=== PATIENT | female | born 1945 | race Caucasian/White ===

== ENCOUNTER 2022-01-22 19:16 | Emergency (ER) | payer MEDICARE, SELFPAY ==
[2022-01-22 19:34] VITALS: BP 148/75; PULSE 76; RESP 18; TEMP 36.3; O2SAT 97; BMI 29.6
--- NOTE | 2022-01-22 20:06 | ED_ITS ---
HPI - Ear Problem General Chief complaint: Ear/Nose/Throat Problem Stated complaint: RT EAR ACHE,PAIN Time Seen by Provider: 01/22/22 19:40 History of Present Illness HPI Narrative: 76-year-old female patient presents emergency department via POV with complaints of right ear pain that has now resolved at time of arrival. If she presses firmly at the base of her ear, along her neck, she can illicit pain. Patient reports that she noted ear pain earlier in the day without known trauma or injury. She denies URI symptoms. She denies fever, chills, or sweats. She has no significant history of recurrent or frequent ear infection. She has known history of wax impaction. She denies sore throat, nasal congestion, or decreased hearing. She has no other acute concerns or complaints. She has taken no medications prior to arrival. See nursing notes for complete details. Related Data Home Medications Medication Instructions Recorded Confirmed No Known Home Medications 01/22/22 01/22/22 Allergies Allergy/AdvReac Type Severity Reaction Status Date / Time No Known Drug Allergies Allergy Verified 01/22/22 19:37 Review of Systems Const: Denies: fever ENMT: Reports: ear pain; Denies: neck pain, difficulty swallowing or ear discharge Cardio: Denies: chest pain or shortness of breath with exertion Resp: Denies: shortness of breath or cough GI: Denies: abdominal pain, nausea, vomiting or difficulty swallowing Musculo: Denies: neck pain Neuro: Denies: headache PFSH PFSH Social History Smoking Status: Former smoker How often do you have a drink containing alcohol: never AUDIT-C Alcohol total score: 0 Non-prescribed substance use: denies use Exam Const: Vital Signs, click to edit/add: Vital Signs - 24 hr 01/22/22 19:34 Temperature 97.4 F L Pulse Rate [Left P ulse Oximeter] 76 Respiratory Rate 18 Blood Pressure [Ri ght Upper Arm] 148/75 H Pulse Oximetry 97 Documenting provider has reviewed patient's vital signs: yes Common normals: no apparent distress, oriented x3, healthy appearing, alert and well nourished General appearance: cooperative, comfortable, well kempt and well developed; not in distress Orientation/consciousness: Yes awake, Yes oriented to person, Yes oriented to place and Yes oriented to time HENMT: Common normals: normocephalic, head/scalp atraumatic, hearing grossly normal bilaterally, external ears normal, TM's normal bilaterally (limited window on right 2/2 wax occlusion), moist oral mucous membranes and oropharynx normal Head and scalp: normocephalic and atraumatic External ear: external ears normal Tympanic membrane: TM's normal bilaterally (limited window on right 2/2 wax occlusion) Eye: Common normals: PERRL and EOMs intact bilaterally Pupil: PERRL Neck & C-Spine: Common normals: full ROM, no lymphadenopathy and supple Chest: Common normals: inspection of chest normal and palpation of chest normal Resp: Common normals: normal respiratory effort, no retractions, no use of accessory muscles and clear to auscultation bilaterally Effort & inspection: able to speak in complete sentences Auscultation: clear to auscultation bilaterally Cardio: Common normals: regular rate, regular rhythm, S1 normal heart sound, S2 normal heart sound, no gallops, no clicks and no murmurs Rate: regular rate Rhythm: regular rhythm Heart sounds: S1 normal and S2 normal Extremity: Common normals: normal to inspection and full ROM Neuro: Common normals: oriented x3, moves all extremities, no focal motor deficits and gait normal Sensorium/orientation: awake, alert, oriented to pe rson, oriented to place and oriented to time Psych: Common normals: thought process normal, cooperative and affect normal Appearance: well kempt Thought process: normal thought process Course Course Hospital Course: After evaluation, recommendation for ear irrigation was requested. However, the materials to perform this are not available in the emergency department. The patient was encouraged to use home treatment for earwax improvement with encouragement to follow-up in the outpatient clinic if needed for ear irrigation. With pain resolved, and no other clinical findings noted, the patient was discharged without further evaluation. Vital Signs Vital signs: Initial Vital Signs Temperature 97.4 F L 01/22/22 19:34 Temperature Source Temporal Artery Scan 01/22/22 19:34 Pulse Rate 76 01/22/22 19:34 Respiratory Rate 18 01/22/22 19:34 Blood Pressure 148/75 H 01/22/22 19:34 Blood Pressure Mean 99 01/22/22 19:34 Blood Pressure Position Sitting 01/22/22 19:34 Pulse Oximetry 97 01/22/22 19:34 Oxygen Delivery Method 01/22/22 19:34 Vital Signs Temperature 97.4 F L 01/22/22 19:34 Pulse Rate 76 01/22/22 19:34 Respiratory Rate 18 01/22/22 19:34 Blood Pressure 148/75 H 01/22/22 19:34 Pulse Oximetry 97 01/22/22 19:34 Temperature 97.4 F L 01/22/22 19:34 Pulse Rate 76 01/22/22 19:34 Respiratory Rate 18 01/22/22 19:34 Blood Pressure 148/75 H 01/22/22 19:34 Pulse Oximetry 97 01/22/22 19:34 Discharge Plan Discharge Clinical Impression: Cerumen impaction Patient Disposition: Home, Self-Care Condition: Stable Instructions: Carbamide Peroxide (Into the ear) Additional Instructions: Thank you for choosing [facility]. Do not use QTIPs on your ears. The patient may use Debrox or Hydrogen Peroxide 3x/week to decrease the amount of wax in ears. The patient is encouraged to use 1 capful of either product and allow to bubble until stopping. Then the patient is encouraged to allow the treatment to drain from the ear WITHOUT USING QTIPs. The patient may use a thin washcloth over the end of the finger to dry the ear and remove any wax that has come to the opening. The patient is advised to consider canola oil or t-tree oil once weekly for moisturizing and advised to massage the tragus (front part of the ear that sticks out) after applying one drop to assist with dryness and itching associated with the treatment to remove the wax. If you are unable to improve your symptoms overnight, then please call clinic for ear irrigation in the AM. Activity Level: No Restrictions and Activity as Tolerated Discharge Diet: Regular Prescriptions: No Action No Known Home Medications 0RF Stand Alone Forms: [employer] Info Instructions
== END 2022-01-22 20:14 | disposition home or self-care (01) ==
LOC: ED 20:09
PROVIDERS: Emergency Provider Family Medicine
DX: H61.21 Impacted cerumen, right ear (principal)
CPT/HCPCS: 99281; 99282

== ENCOUNTER 2023-10-29 16:51 | Outpatient (CLI) | payer MEDICARE, SELFPAY | END 2023-10-29 16:52 | disposition home or self-care (01) | PROVIDERS: PCP Family Medicine; Visit Provider Family Medicine | DX: R63.4 Abnormal weight loss (principal); R35.0 Frequency of micturition; Z13.220 Encounter for screening for lipoid disorders; Z13.29 Encounter for screening for other suspected endocrine disorder | CPT/HCPCS: 80048; 80061; 81001; 82728; 84443; 85025; 87086 ==

== ENCOUNTER 2024-02-09 18:17 | Emergency (ER) | payer MEDICARE, SELFPAY ==
[2024-02-09 18:28] VITALS: BP 152/89; PULSE 93; RESP 18; TEMP 36.7; O2SAT 95; BMI 25.3
--- NOTE | 2024-02-09 18:49 | CRLHL7_ITS ---
For Patients: As a result of the Century Cures Act, medical imaging exams and procedure reports are released immediately into your electronic medical record. You may view this report before your referring provider. If you have questions, please contact your health care provider. INDICATION: Trauma. Fall. The patient felt a pop in the left hip area. TECHNIQUE: AP pelvis and single view of the left hip. FINDINGS: Skeletal demineralization. No acute fracture or dislocation of the pelvis or left hip. Vascular calcifications in the pelvis. Slight lumbar curve convex towards the left. The sacroiliac joints are symmetric/intact. IMPRESSION: No acute fracture or acute malalignment of the pelvis or left hip. Dictated by Akash Bazan MD @ 02/09/2024 7:29:04 PM (Electronically Signed)
--- NOTE | 2024-02-09 18:58 | ED_ITS ---
HPI - General Adult General Chief complaint: Fall/Minor Trauma Stated complaint: Fell into glass door on right side-pain and pop Time Seen by Provider: 02/09/24 18:25 Source: patient Mode of arrival: ambulatory Limitations: no limitations History of Present Illness HPI narrative: 78-year-old female coming in today complaining of right low back pain. Patient states that yesterday she thinks that she tripped and she fell, landing on her buttocks. She was able to get up and shortly after that she started feeling right-sided low back pain. She states that hurts to stand or to roll over in bed. Hurts to walk but she is able to do it without assistance. She denies any loss of bladder or bowel control. The pain does not radiate anywhere including down her legs. Patient states that she took an aspirin for pain control, states that Tylenol is ?for sissies and does not work for her. Asked her if she wanted something stronger and she declined. Related Data Home Medications ?Medication ?Instructions ?Recorded ?Confirmed multivitamin 1 tab PO QAM 10/28/23 11/19/23 Previous Rx's ?Medication ?Instructions ?Recorded tolterodine 2 mg tablet (Detrol) 2 mg PO BID #60 tabs 11/19/23 Allergies Allergy/AdvReac Type Severity Reaction Status Date / Time No Known Drug Allergies Allergy Verified 11/19/23 11:28 Review of Systems Status of ROS: Reports: 10 or more systems reviewed and unremarkable except as noted in History and below [facility] Medical History Incontinence in female ?R32 - Unspecified urinary incontinence (ICD-10) History of kidney stones (05/05/16) ?Z87.442 - Personal history of urinary calculi (ICD-10) Urticaria of unknown origin ?L50.9 - Urticaria, unspecified (ICD-10) Surgical History History of tonsillectomy ?Z90.89 - Acquired absence of other organs (ICD-10) History of vaginal delivery History of tubal ligation (1970) ?Z98.51 - Tubal ligation status (ICD-10) History of shoulder surgery ?Z98.890 - Other specified postprocedural states (ICD-10) History of phacoemulsification of cataract of both eyes with intraocular lens implantation (2015) ?Z98.41 - Cataract extraction status, right eye (ICD-10) ?Z98.42 - Cataract extraction status, left eye (ICD-10) ?Z96.1 - Presence of intraocular lens (ICD-10) Family History Mother Stroke, Onset Age: 90 Daughter Lung cancer Social History Narrative: , five kids, retired from [employer], nonsmoker, no EtOH What is your current living situation?: I presently have a place to live Problems where you live: no known problems In the past 12 months, utilities in danger of being shut off: no In past 12 months, lack of transportation kept you from medical appts, meetings, work, or getting things needed for daily living: no In the past 12 mos, have been you worried that your food would run out before you had money to buy more?: never true In the past 12 mos, the food you bought just didn't last and you didn't have money to buy more?: never true Smoking Status: Former smoker How often do you have a drink containing alcohol: never AUDIT-C Alcohol total score: 0 Non-prescribed substance use: denies use How often does anyone, including family, friends and others, physically hurt you : never How often does anyone, including family, friends and others, insult or talk down to you: never How often does anyone, including family, friends and others, threaten you with harm: never How often does anyone, including family, friends and others, scream or curse at you: never Little interest or pleasure in doing things: not at all Feeling down, depressed, or hopeless: not at all Exam Narrative: Exam Narrative: Well-nourished well-developed patient in no acute distress. Alert and oriented. Answers questions appropriately. Patient is slightly disgruntled. HEENT: Normocephalic atraumatic. Pupils are equally round reactive to light. Extraocular muscles are intact. Conjunctivae are moist without any icterus noted. Moist mucous membranes. Cardiovascular: Heart is regular rate and rhythm. Lungs: Clear to auscultation bilaterally- Patient takes deep breaths without any discomfort. Abdomen: Soft and nontender nondistended with normal bowel sounds. Back: No rashes or bruising noted. Patient has tenderness over the iliac crest on the left. No tenderness over the thoracic or lumbar spine. Const: Vital Signs, click to edit/add: Vital Signs - 24 hr 02/09/24 18:28 Temperature 98.1 F Pulse Rate [Pulse Oximeter] 93 Respiratory Rate 18 Blood Pressure [Ri ght Upper Arm] 152/89 H Pulse Oximetry 95 Oxygen Delivery Me thod Room Air Course Course ED Course: X-ray of the pelvis was done, no fracture visualized. Patient stated that she was hungry wanted to be discharged at this time. Given the fact that she has been walking and doing her activities of daily living without significant impairment, I do not think that a CT scan is necessary at this time. I did discuss this with the patient and the patient states that she has not interested in any scanning at this time. We discussed pain management, icing, and reasons for follow-up. Vital Signs Vital signs: Initial Vital Signs Temperature 98.1 F 02/09/24 18:28 Temperature Source Temporal Artery Scan 02/09/24 18:28 Pulse Rate 93 02/09/24 18:28 Respiratory Rate 18 02/09/24 18:28 Blood Pressure 152/89 H 02/09/24 18:28 Blood Pressure Mean 110 H 02/09/24 18:28 Pulse Oximetry 95 02/09/24 18:28 Oxygen Delivery Method Room Air 02/09/24 18:28 Vital Signs Temperature 98.1 F 02/09/24 18:28 Pulse Rate 93 02/09/24 18:28 Respiratory Rate 18 02/09/24 18:28 Blood Pressure 152/89 H 02/09/24 18:28 Pulse Oximetry 95 02/09/24 18:28 Oxygen Delivery Method Room Air 02/09/24 18:28 Temperature 98.1 F 02/09/24 18:28 Pulse Rate 93 02/09/24 18:28 Respiratory Rate 18 02/09/24 18:28 Blood Pressure 152/89 H 02/09/24 18:28 Pulse Oximetry 95 02/09/24 18:28 Oxygen Delivery Method Room Air 02/09/24 18:28 Medical Decision Making MDM Narrative Medical decision making narrative: 78-year-old female with low back pain status post fall. Will send the patient home with hydrocodone. We discussed side effects of this medication and increa sed risk of falling dizziness. Patient states that she would like to proceed. Imaging Data X-ray pelvis: Attestation: I have reviewed the pertinent imaging results. Radiologist's impression: TECHNIQUE: AP pelvis and single view of the left hip. FINDINGS: Skeletal demineralization. No acute fracture or dislocation of the pelvis or left hip. Vascular calcifications in the pelvis. Slight lumbar curve convex towards the left. The sacroiliac joints are symmetric/intact. IMPRESSION: No acute fracture or acute malalignment of the pelvis or left hip. Discharge Plan Discharge Clinical Impression: Fall, Low back pain Patient Disposition: Home, Self-Care Condition: Stable Additional Instructions: Okay to use Tylenol up to 1000 mg 3 times per day. If this does not help then okay to take hydrocodone-there is Tylenol in this medication as well also be sure not to take combination of the hydrocodone and Tylenol that exceeds 3000 mg per day. This pain medication can cause dizziness, increased risk of fall and constipation. Be careful when to take them. Also okay to ice the sore area, do not apply ice directly to the skin and do not ice for more than 20 minutes at a time. Prescriptions: No Action multivitamin Tablet 1 tab PO QAM tolterodine [Detrol] 2 mg tablet 2 mg PO BID Qty: 60 2RF Follow Up/Referrals: Gerry Schmidt MD [Primary Care Provider] - Stand Alone Forms: [employer] Info Instructions
== END 2024-02-09 19:49 | disposition home or self-care (01) ==
PROVIDERS: Emergency Provider Family Medicine; PCP Family Medicine
DX: M54.50 Low back pain, unspecified (principal); W01.0XXA Fall on same level from slipping, tripping and stumbling without subsequent striking against object, initial encounter
CPT/HCPCS: 72170; 99283; 99284

== ENCOUNTER 2024-06-09 21:57 | Inpatient (IN) | payer MEDICARE, SELFPAY ==
[2024-06-09] VITALS (9 sets, daily range): BP systolic 151–170; BP diastolic 82–91; PULSE 99–106; RESP 16–24; O2SAT 87–96; BMI 25.7
--- NOTE | 2024-06-09 22:55 | ED_ITS ---
HPI - General Adult General Chief complaint: Extremity Pain/Injury, Lower Stated complaint: Fell,right leg pain Time Seen by Provider: 06/09/24 22:54 History of Present Illness HPI narrative: Pt. fell and tripped over the tread mill as walking by it. Pt. can't cover remover her right leg. Severe hip pain. 79-year-old woman presenting to the emergency department via EMS with complaint of right hip pain after a fall. She adamantly denies injury elsewhere. Says she did not hit her head. No neck or back pain. There was no loss consciousness. No abdominal pain. No shortness of breath. But lives with her and her sister independently. Family has been reporting frequent falls more lately as well as increased agitation in the evenings. Otherwise they are bothered by conflict between and Vidya's sister in the home Apparently does not get any regular medical care. Is not anticoagulated Related Data Home Medications ?Medication ?Instructions ?Recorded ?Confirmed multivitamin 1 tab PO QAM 10/28/23 11/19/23 Previous Rx's ?Medication ?Instructions ?Recorded tolterodine 2 mg tablet (Detrol) 2 mg PO BID #60 tabs 11/19/23 Allergies Allergy/AdvReac Type Severity Reaction Status Date / Time No Known Drug Allergies Allergy Verified 11/19/23 11:28 Review of Systems Status of ROS: Reports: 6 or more systems reviewed and unremarkable except as noted in History and below [facility] Medical History Incontinence in female ?R32 - Unspecified urinary incontinence (ICD-10) History of kidney stones (05/05/16) ?Z87.442 - Personal history of urinary calculi (ICD-10) Urticaria of unknown origin ?L50.9 - Urticaria, unspecified (ICD-10) Surgical History History of tonsillectomy ?Z90.89 - Acquired absence of other organs (ICD-10) History of vaginal delivery History of tubal ligation (1970) ?Z98.51 - Tubal ligation status (ICD-10) History of shoulder surgery ?Z98.890 - Other specified postprocedural states (ICD-10) History of phacoemulsification of cataract of both eyes with intraocular lens implantation (2015) ?Z98.41 - Cataract extraction status, right eye (ICD-10) ?Z98.42 - Cataract extraction status, left eye (ICD-10) ?Z96.1 - Presence of intraocular lens (ICD-10) Family History Mother Stroke, Onset Age: 90 Daughter Lung cancer Social History Narrative: , five kids, retired from [employer], nonsmoker, no EtOH What is your current living situation?: I presently have a place to live Problems where you live: no known problems In the past 12 months, utilities in danger of being shut off: no In the past 12 mos, have been you worried that your food would run out before you had money to buy more?: never true In the past 12 mos, the food you bought just didn't last and you didn't have money to buy more?: never true Smoking Status: Former smoker How often do you have a drink containing alcohol: never AUDIT-C Alcohol total score: 0 Non-prescribed substance use: denies use How often does anyone, including family, friends and others, physically hurt you : never How often does anyone, including family, friends and others, insult or talk down to you: never How often does anyone, including family, friends and others, threaten you with harm: never How often does anyone, including family, friends and others, scream or curse at you: never service: No Exam Narrative: Exam Narrative: Declares she is in pain. Disagreeable. Tolerates exam somewhat. Head looks to be atraumatic. Cranial nerves 2-12 a to be intact. No indication of injury to hurt dentition. Neck is supple nontender. Back also nontender without defo rmity. Heart in elevated rate and appears to be in a regular rhythm. Abdomen is soft nontender. No pain to palpation over the anterior iliac crest. Large bruise with some hematoma over the right hip. Very tender generally to palpation here. Right leg is shortened little bit and externally rotated. She is unwilling to move this leg. Const: Vital Signs, click to edit/add: Vital Signs - 24 hr 06/09/24 22:04 06/09/24 23:15 06/09/24 23:16 Temperature Pulse Rate 104 H 103 H Pulse Rate [Right Radial] 99 Respiratory Rate 24 18 Blood Pressure 170/91 H Blood Pressure [Le ft Upper Arm] 151/82 H Pulse Oximetry 96 93 94 Oxygen Delivery Me thod Room Air Oxygen Flow Rate 06/09/24 23:31 06/09/24 23:32 06/09/24 23:45 Temperature Pulse Rate 103 H 100 106 H Pulse Rate [Right Radial] Respiratory Rate 18 Blood Pressure 169/87 H Blood Pressure [Le ft Upper Arm] Pulse Oximetry 92 91 92 Oxygen Delivery Me thod Oxygen Flow Rate 06/09/24 23:54 06/09/24 23:54 06/09/24 23:56 Temperature Pulse Rate Pulse Rate [Right Radial] Respiratory Rate 16 16 Blood Pressure Blood Pressure [Le ft Upper Arm] Pulse Oximetry 87 L 92 92 Oxygen Delivery Me thod Room Air Nasal Cannula Oxygen Flow Rate 2 06/09/24 23:57 06/10/24 00:00 06/10/24 00:01 Temperature Pulse Rate 104 H 105 H Pulse Rate [Right Radial] Respiratory Rate 18 Blood Pressure 165/87 H Blood Pressure [Le ft Upper Arm] Pulse Oximetry 92 96 98 Oxygen Delivery Me thod Nasal Cannula Oxygen Flow Rate 2 06/10/24 00:32 Temperature 98.2 F Pulse Rate Pulse Rate [Right Radial] Respiratory Rate Blood Pressure Blood Pressure [Le ft Upper Arm] Pulse Oximetry Oxygen Delivery Me thod Oxygen Flow Rate Documenting provider has reviewed patient's vital signs: yes Course Vital Signs Vital signs: Initial Vital Signs Pulse Rate 99 06/09/24 22:04 Pulse Rhythm Regular 06/09/24 22:04 Respiratory Rate 24 06/09/24 22:04 Blood Pressure 151/82 H 06/09/24 22:04 Blood Pressure Mean 105 06/09/24 22:04 Pulse Oximetry 96 06/09/24 22:04 Oxygen Delivery Method Room Air 06/09/24 22:04 Vital Signs Pulse Rate 99 06/09/24 22:04 Respiratory Rate 24 06/09/24 22:04 Blood Pressure 151/82 H 06/09/24 22:04 Pulse Oximetry 96 06/09/24 22:04 Oxygen Delivery Method Room Air 06/09/24 22:04 Temperature 98.2 F 06/10/24 00:32 Pulse Rate 105 H 06/10/24 00:01 Respiratory Rate 18 06/10/24 00:01 Blood Pressure 165/87 H 06/10/24 00:01 Pulse Oximetry 98 06/10/24 00:01 Oxygen Delivery Method Nasal Cannula 06/09/24 23:57 Oxygen Flow Rate 2 06/09/24 23:57 Medications Administered Medications: Discontinued Medications Generic Name Dose Route Start Last Admin Trade Name Fredede PRN Reason Stop Dose Admin Hydromorphone HCl 0.5 mg 06/09/24 23:40 06/09/24 23:45 Hydromorphone 0.5 Mg/0.5 Ml Inj IVP 06/09/24 23:41 0.5 mg ONCE ONE Administration Sodium Chloride 500 mls @ 1,000 mls/hr 06/09/24 22:58 06/09/24 23:10 0.9 % Sodium Chloride 500 Ml IV 06/09/24 23:27 1,000 mls/hr .Q30M ONE Administration Morphine Sulfate 4 mg 06/09/24 22:58 06/09/24 23:10 Morphine 4 Mg/Ml Inj IVP 06/09/24 22:59 4 mg ONCE ONE Administration Medical Decision Making MDM Narrative Medical decision making narrative: I would anticipate right hip fracture at this point. Possibly pelvic fracture. Does not look to have sustained other significant injury though there is some evidence of bruising elsewhere. IV was initiated and given 4 mg of morphine. When this was ineffective given 0.5 mg of Dilaudid. Complaining of pain later and falling asleep as well. X-ray of the right hip independently reviewed by me shows an impacted femoral neck fracture. Ordered chest x-ray independently reviewed by me looks to be absent airspace disease. Did speak to Orthopedics anticipating admission for surgery tomorrow. As has received infrequent medical care I have ordered basic labs and then as requested by the admitting hospitalist, addition of proBNP and EKG. They were not resulted at the time of our conversation. White count is notably elevated at 17.4. Unclear how much of this is potential infection versus stress response. Will be placing Arias catheter per conversation with hospitalist and collect urinalysis. Anticipating admission shortly. Will be handed off at change of shift pending remainder of labs and EKG as noted above Medical Records Medical records reviewed: Yes I reviewed the patient's medical records Lab Data Labs: Lab Results 06/10/24 Range/Units 00:20 WBC 17.37 H (4.50-11.00) K/uL RBC 4.25 (4.00-5.20) m/uL Hgb 12.4 (12.0-16.0) gm/dL Hct 39.7 (33.0-51.0) % MCV 93 (80-100) fL MCH 29 (26-34) pg MCHC 31 L (32-36) gm/dL RDW Coeff of [place]hely 13.2 (11.5-15.5) % Plt Count 364 (140-440) K/uL Neut % (Auto) 87.1 H (42.0-72.0) % Lymph % (Auto) 6.7 L (20-44) % [place] % (Auto) 4.1 (0.0-11.0) % Eos % (Auto) 0.2 (0.0-7.0) % Baso % (Auto) 0.2 (0.0-3.0) % Neut # (Auto) 15.10 H (1.7-7.0) K/uL Lymph # (Auto) 1.20 (0.90-2.90) K/uL [place] # (Auto) 0.70 (0.00-0.90) K/UL Eos # (Auto) 0.00 (0.00-0.50) K/uL Baso # (Auto) 0.00 (0.00-0.30) K/uL Abs Immat Gran (auto) 0.30 (0.00-0.30) K/uL Imm/Tot Granulo (auto) 1.7 % Critical Care Time Critical Care Time Total Critical Care Time in Minutes: 35 Discharge Plan Discharge Clinical Impression: Hip fracture, Frequent falls Patient Disposition: Admitted As Observation Condition: Stable
--- NOTE | 2024-06-09 22:58 | CRLHL7_ITS ---
For Patients: As a result of the Century Cures Act, medical imaging exams and procedure reports are released immediately into your electronic medical record. You may view this report before your referring provider. If you have questions, please contact your health care provider. INDICATION: Fall, severe right hip pain TECHNIQUE: Pelvis radiograph, Hip radiograph 3 views right COMPARISON: 02/09/2024 FINDINGS: Bone: There is an impacted fracture of the right femoral neck noted. Moderate diffuse osteopenia is seen. Joint: The hip joints are unremarkable. The visualized sacroiliac joints are unremarkable in appearance. The pubic symphysis is normal in appearance. Soft tissue: Unremarkable. No radiopaque foreign bodies are seen. IMPRESSION: 1. There is an impacted fracture of the right femoral neck noted. Dictated by Ever Christianson MD @ 06/09/2024 11:36:48 PM Dictated by: Ever Christianson MD @ 06/09/2024 23:36:52 (Electronically Signed)
[2024-06-09] MEDS: MORPHINE 4 MG/ML INJ IVP (23:10)
[2024-06-09] MEDS: 0.9 % SODIUM CHLORIDE 500 ML 500 ML 1000 ML IV (23:10)
[2024-06-09] MEDS: HYDROmorphone 0.5 mg/0.5 ml inj IVP (23:45)
--- NOTE | 2024-06-09 23:52 | CRLHL7_ITS ---
For Patients: As a result of the Cures Act, medical imaging exams and procedure reports are released immediately into your electronic medical record. You may view this report before your referring provider. If you have questions, please contact your health care provider. INDICATION: Preoperative chest valuation, fall TECHNIQUE: Chest radiograph 1 view COMPARISON: None FINDINGS: Mediastinum: The mediastinum is normal in appearance. The heart silhouette is normal in size and morphology. Lung: Both lungs are unremarkable in appearance. No sign of pleural effusion seen. No pneumothorax is identified. Bone and Soft tissue: Unremarkable for age. IMPRESSION: 1. No acute cardiopulmonary disease is seen. Dictated by: Ever Christianson MD @ 06/10/2024 00:07:47 (Electronically Signed)
[2024-06-10] VITALS (16 sets, daily range): BP systolic 121–165; BP diastolic 57–94; PULSE 59–105; RESP 16–18; TEMP 36.5–36.8; O2SAT 90–98; BMI 23.4
[2024-06-10 00:23] LABS: Basophils Percent Auto 0.2 % (0.0-3.0); Eosinophils Percent Auto 0.2 % (0.0-7.0); Hematocrit 39.7 % (33.0-51.0); Hemoglobin* 12.4 gm/dL (12.0-16.0); Immature Granulocytes Pct Auto 1.7 %; Lymphocytes Percent Auto 6.7 % (20-44); Mean Corpuscular HGB Conc 31 gm/dL (32-36); Mean Corpuscular Hemoglobin 29 pg (26-34); Mean Corpuscular Volume 93 fL (80-100); Monocytes Percent Auto 4.1 % (0.0-11.0); Neutrophils Percent Auto 87.1 % (42.0-72.0); Platelet Count* 364 K/uL (140-440); RDW Coefficient of Variation % 13.2 % (11.5-15.5); Red Blood Count 4.25 m/uL (4.00-5.20); White Blood Count* 17.37 K/uL (4.50-11.00)
[2024-06-10 00:27] LABS: Slide Review Reflex No
[2024-06-10 00:38] LABS: Albumin* 4.2 g/dL (3.3-5.0); Chloride* 104 mmol/L (96-114)
[2024-06-10 00:39] LABS: Potassium* 3.5 mmol/L (3.6-5.1); Sodium* 139 mmol/L (135-149)
[2024-06-10 00:41] LABS: Anion Gap 11 mEq/L (7-15); Bilirubin Total* 0.3 mg/dL (0.1-1.5); Carbon Dioxide* 24 mmol/L (20-32); Creatinine* 0.8 mg/dL (0.5-1.5); Est. Creatinine Clearance* 40.04; Estimated Glomerular Filt Rate 75 ml/min; Total Protein* 7.7 g/dL (6.0-8.3)
[2024-06-10 00:42] LABS: Alanine Aminotransferase* 15 U/L (4-35); Alkaline Phosphatase* 89 U/L (40-150); Aspartate Amino Transferase* 24 U/L (12-35); Blood Urea Nitrogen* 25 mg/dL (7-30); Calcium* 9.1 mg/dL (8.4-10.6); Glucose* 145 mg/dL (60-115)
[2024-06-10 00:53] LABS: NT Pro B Type NatriureticPept* 262 pg/mL
--- NOTE | 2024-06-10 01:14 | W.PM.THH&P_ITS ---
Telehealth- H&P: HPI History of Present Illness Date Seen: 06/20/24 Chief complaint: Fell,right leg pain Narrative: Vidya Lemus is seen as an [facility] Tele[facility] visit. Vidya Lemus is a 79 year old female who does not ses medical providers, reportedly has carlton doing worse over the last several months with more frequent fal\ls. She lives with her and sister. She fell on the day of admission and complained of right hip pain. per family she has had increasing confusion during nights, she has had more frequent falls recently. The patient denies any lightheadedness or chest pain. She says she is tripped over a treadmill and fell on her right hip. She denies hitting her head or neck. She denies any pain other than her right hip. She was unable to bear weight on the right leg due to pain. She denies any fevers or chills. Denies any cough. At baseline she says she has difficulty with balance so she has trouble with stairs and has to navigate them very slowly. She says she thinks she would be short of breath if she attempted walking a block on flat ground. She does not follow with the medical community very frequently but did have eye surgery about a year ago and tolerated this without any problems. In the ER she underwent a chest x-ray which showed no obvious focal opacities. An x-ray of the right hip showed an impacted femoral neck fracture. The ER discussed the case with orthopedic surgery who plans for OR in a.m. On initial preoperative evaluation patient was found to be in a flutter with a 2-1 conduction. Review of Systems Status of ROS: Reports: 10 or more systems reviewed and unremarkable except as noted in History and below [facility] Medical History (Updated 06/12/24 @ 16:17 by Lena Pierce MD) COPD (chronic obstructive pulmonary disease) ?J44.9 - Chronic obstructive pulmonary disease, unspecified (ICD-10) Incontinence in female ?R32 - Unspecified urinary incontinence (ICD-10) History of kidney stones (05/05/16) ?Z87.442 - Personal history of urinary calculi (ICD-10) Urticaria of unknown origin ?L50.9 - Urticaria, unspecified (ICD-10) Surgical History History of tonsillectomy ?Z90.89 - Acquired absence of other organs (ICD-10) History of vaginal delivery History of tubal ligation (1970) ?Z98.51 - Tubal ligation status (ICD-10) History of shoulder surgery ?Z98.890 - Other specified postprocedural states (ICD-10) History of phacoemulsification of cataract of both eyes with intraocular lens implantation (2014) ?Z98.41 - Cataract extraction status, right eye (ICD-10) ?Z98.42 - Cataract extraction status, left eye (ICD-10) ?Z96.1 - Presence of intraocular lens (ICD-10) Family History Mother Stroke, Onset Age: 90 Daughter Lung cancer Social History Narrative: , five kids, retired from [employer], nonsmoker, no EtOH What is your current living situation?: I presently have a place to live Problems where you live: no known problems Problems where you live details: N/A In the past 12 months, utilities in danger of being shut off: no In past 12 months, lack of transportation kept you from medical appts, meetings, work, or getting things needed for daily living: no In the past 12 mos, have been you worried that your food would run out before you had money to buy more?: never true In the past 12 mos, the food you bought just didn't last and you didn't have money to buy more?: never true Smoking Status: Former smoker How often do you have a drink containing alcohol: never AUDIT-C Alcohol total score: 0 Non-prescribed substance use: denies use How often does anyone, including family, friends and others, physically hurt you : never How often does anyone, including family, friends and others, insult or talk down to you: never How often does anyone, including family, friends and others, threaten you with harm: never How often does anyone, including family, friends and others, scream or curse at you: never service: No Meds Home Medications and Allergies Home Medications ?Medication ?Instructions ?Recorded ?Confirmed ?Type multivitamin 1 tab PO QAM 10/28/23 06/10/24 History Allergies Allergy/AdvReac Type Severity Reaction Status Date / Time No Known Drug Allergies Allergy Verified 11/19/23 11:28 Exam Narrative Exam Narrative: Physical Exam GENERAL: ?vital signs reviewed, well developed and nourished, in no distress HEENT: pupils are equal round and reactive to light, extraocular movements are grossly within normal limits and oral mucosa is dry NECK: Supple without lymphadenopathy or thyromegaly according to nursing staff examination observation HEART: tachycardic rate with regular rhythmwithout any rubs, murmurs, or gallops. LUNGS: Clear to auscultation bilaterally with good air movement throughout ABDOMEN: Observation from nurse assisted exam, abdomen appears soft, nontender, and nondistended with Positive bowel sounds noted. EXTREMITIES: Strength and sensation is observed to be grossly within normal limits in the upper and lower extremities.? No focal strength deficit is observed. SKIN:? Observed warm and dry with color normal, with stage I pressure injury on the sacrum, abrasion on the left [email or web address] Const Vital Signs, click to edit/add: Vital Signs - 24 hr 06/09/24 22:04 06/09/24 23:15 06/09/24 23:16 Temperature Pulse Rate 104 H 103 H Pulse Rate [Right Radial] 99 Respiratory Rate 24 18 Blood Pressure 170/91 H Blood Pressure [Left Upper Arm] 151/82 H Pulse Oximetry 96 93 94 Oxygen Delivery Method Room Air Oxygen Flow Rate 06/09/24 23:31 06/09/24 23:32 06/09/24 23:45 Temperature Pulse Rate 103 H 100 106 H Pulse Rate [Right Radial] Respiratory Rate 18 Blood Pressure 169/87 H Blood Pressure [Left Upper Arm] Pulse Oximetry 92 91 92 Oxygen Delivery Method Oxygen Flow Rate 06/09/24 23:54 06/09/24 23:54 06/09/24 23:56 Temperature Pulse Rate Pulse Rate [Right Radial] Respiratory Rate 16 16 Blood Pressure Blood Pressure [Left Upper Arm] Pulse Oximetry 87 L 92 92 Oxygen Delivery Method Room Air Nasal Cannula Oxygen Flow Rate 2 06/09/24 23:57 06/10/24 00:00 06/10/24 00:01 Temperature Pulse Rate 104 H 105 H Pulse Rate [Right Radial] Respiratory Rate 18 Blood Pressure 165/87 H Blood Pressure [Left Upper Arm] Pulse Oximetry 92 96 98 Oxygen Delivery Method Nasal Cannula Oxygen Flow Rate 2 06/10/24 00:32 06/10/24 00:55 06/10/24 01:04 Temperature 98.2 F 98.2 F Pulse Rate Pulse Rate [Right Radial] 99 Respiratory Rate 18 18 Blood Pressure Blood Pressure [Left Upper Arm] 151/82 H Pulse Oximetry 90 Oxygen Delivery Method Nasal Cannula Oxygen Flow Rate 2 Hospitalist - H&P: Result Labs Labs: Short CBC 06/10/24 Range/Units 00:20 WBC 17.37 H (4.50-11.00) K/uL Hgb 12.4 (12.0-16.0) gm/dL Hct 39.7 (33.0-51.0) % Plt Count 364 (140-440) K/uL BMP 06/10/24 00:20 Sodium 139 Potassium 3.5 L Chloride 104 Carbon Dioxide 24 BUN 25 Creatinine 0.8 Glucose 145 H Calcium 9.1 Liver Function 06/10/24 Range/Units 00:20 Total Bilirubin 0.3 (0.1-1.5) mg/dL Direct Bilirubin 0.0 (0.0-0.5) mg/dL AST 24 (12-35) U/L ALT 15 (4-35) U/L Alkaline Phosphatase 89 (40-150) U/L Albumin 4.2 (3.3-5.0) g/dL Assessment and Plan Assessment and plan (1) Frequent falls: Problem comment: -family states that patient has been more confused at night and has been falling down, patient is describing a mechanical fall and that she just tripped by the treatment. -patient needs full evaluation by Physical therapy and Occupational therapy. Status: Acute (2) Hip fracture: Problem comment: s/p right bipolar hemiarthroplasty. DOS: 06/11/24; Dr. Florentino. Status: Acute (3) Atrial flutter with rapid ventricular response: Problem comment: -Suspected by ED, my EKG interpretation is normal sinus rhythm, heart rate in the 90s her not in the 140s, I think EKG machine has been reading T-waves as extra QRS beats. Prolonged QTC interval. -echo was done today and it showed Normal sinus. 1. Normal LV size, normal global systolic function with an estimated EF of 65 - 70%. 2. Right ventricular cavity size is normal, global systolic RV function is normal. 3. Normal left atrium size. 4. No significant valve disease detected. -patient will need to follow up with PCP as an outpatient to follow up if patient is having any abnormal rhythm. Status: Suspected (4) COPD (chronic obstructive pulmonary disease): Problem comment: -Patient shows shortness of breath on exertion, she mentioned that it is a chronic problem because she has COPD. -She has been smoking for long time and quit smoking 4 years ago. - EKG and troponin were done this a.m. and were unremarkable. -patient does not follow up regularly with PCP, she is not currently on any inhalers. We recommend following up with her PCP to do more workup as an outpatient. -ordered budesonide + Duonebs nebulizers. Status: Acute Plan Assessment and Plan Fall Impacted right femoral neck fracture Nonweightbearing on the right lower extremity Will need pharmacological prophylaxis but will hold for now as patient may go to the OR in a.m. Pain management with scheduled acetaminophen and as needed oxycodone Preoperative risk stratification, patient is not yet optimized for planned surgery. Although there is a high threshold of medical comorbidity to justify delay repair of a hip fracture patient needs further risk stratification before proceeding with surgery. She does not follow with medical providers. She is found to be in atrial flutter which appears to be new given initial heart rate was 99, current heart rate 150 with atrial flutter with 2-1 conduction. at the very least rate needs to be better controlled before surgery. Echocardiogram should be obtained to look for valvular abnormalities as this may be important in for general anesthesia planning proBNP 262 argues against heart failure EKG personally reviewed: Atrial flutter with 2-1 conduction, low voltage, inferior Q waves noted Repeat EKG with sinus tachycardia, Will recheck EKG in a.m. if only sinus tachycardia and no further symptoms she may be able to be optimized for surgery tomorrow Functional capacity less than 4 METS, patient says she gets dyspneic when she walks a block. No chest pain. No known CAD. Of note she did tolerate a ice surgery about a year ago without any trouble. Check TSH Start metoprolol 25 mg 2 times daily Will give 500 mL bolus as she appears somewhat dry on exam, already received 500 mL in the ER. Acute respiratory failure with hypoxia Possibly due to opioids given in the ER Chest x-ray with no obvious large focal opacities, official read is still pending incentive spirometry Leukocytosis Unclear etiology, could be reactive Will check UA to look for signs of obvious infection and will treat if positive Dementia with behavioral disturbance Patient appears to have dementia with sundowning at times per family history. Currently calm Delirium hygiene Full code for now as default until CODE STATUS/wishes can be confirmed with family Prior to admission home medications that were felt to be needed immediately have been ordered. The remainder of the home medications will await pharmacy reconciliation and will be ordered by the attending provider in the a.m. Telehealth Visit: Today's History and Physical is provided via interactive telehealth by Dr. Ko Redmond MD. Patient is located at [facility]. Provider is located at [place]. Nursing staff assisted with the patient's exam. The visit being done today meets criteria for a telehealth visit and the patient or patients parent/guardian is aware the visit is a telehealth visit. Start Time: 129 End Time: 140 Medical Complexity: High ~~~~~~~~~~~~~~~~ Dr. Ko Redmond ~~~~~~~~~~~~~~~~ Disclaimer: This note may contain dictation using voice recognition software. As a result, there may be errors that have gone undetected. Please consider this when interpreting information found in this note. Telehealth: Statement Statement Telehealth Visit: Today's History and Physical is provided via interactive telehealth by Ko Redmond MD.? Patient is located at [facility].? Provider is located at [facility] [place].? Nursing staff assisted with the patient's exam. The visit being done today meets criteria for a telehealth visit and the patient or patient?s parent/guardian is aware the visit is a telehealth visit.
[2024-06-10 01:43] LABS: Appearance Urine Clear (Clear); Bacteria Urine Few; Bilirubin Urine Negative (Negative); Blood Urine Trace-intact (Negative); Color Urine Yellow (Yellow); Glucose Urine Negative (Negative); Ketones Urine 1+ (Negative); Leukocyte Esterase Urine Negative (Negative); Nitrite Urine Negative (Negative); Protein Urine 1+ (Negative); RBC Urine 0-2 (0-2); Specific Gravity Urine 1.025 (1.000-1.030); WBC Urine 0-2 (0-5)
[2024-06-10] MEDS: POTASSIUM CHLORIDE 10 MEQ CAPSULE ER 40 MEQ PO (01:50)
[2024-06-10] MEDS: SODIUM CHLORIDE 0.9 % (FLUSH) 10 ML SYRINGE 5 ML IVF ×3 (01:50→19:42)
[2024-06-10] MEDS: HYDROmorphone 0.5 mg/0.5 ml inj IVP ×4 (01:51→19:42)
[2024-06-10] MEDS: 0.9 % SODIUM CHLORIDE 500 ML 500 ML IV (01:57)
--- NOTE | 2024-06-10 05:02 | PC.NURSE ---
Shift note: Pt arrived was brought to the unit at 0055 on account of fall that resulted into fracture to the right hip. She was in much pain on arrival. Pain rated 9/10. Patient was alert and oriented. She was to remain in bedrest and NPO awaiting for clearance for surgery. Reviewed through [facility] at 0155. Deluded given and appeared effective. Patient declined ice pack application. Arias placed at 0115 and draining clear urine with normal odor. On assessment, patient was noted to have a reddened area at the maggy-anal with few small open areas. A and D cream applied. Patient had adequate sleep. Systolic Bp was elevated on admission.
--- NOTE | 2024-06-10 06:12 | ED.GENADULT ---
HPI - General Adult General Chief complaint: Extremity Pain/Injury, Lower Stated complaint: Fell,right leg pain Time Seen by Provider: 06/09/24 22:54 History of Present Illness HPI narrative: This is an addendum to Dr. Bermudez is ER note for this patient from 06/09/2024. Dr. Del Rio saw this patient and diagnosed her with a hip fracture and got her admitted to the hospitalist service and arrange orthopedic consultation. Conversation with the accepting hospitalist occurred around midnight, when I came on duty to take over the emergency department. Patient was accepted for admission. Prior to going to the inpatient floor nurses did a 12 lead EKG (requested by hospitalist, I think, but it was ordered by Dr. Del Rio). EKG shows a narrow complex regular tachycardia with heart rate of 156. Per the computer interpretation it is ?undetermined rhythm? but by my interpretation I think it shows atrial flutter with 2:1 conduction. I think I can see flutter waves visible in leads 2 and lead V2. The patient was taken to the floor shortly after obtaining the EKG and before I could evaluate for further treatment. It sounds like this flutter was not present when the patient 1st arrived. However, she has not had medical care in a couple of decades so I do not think it is clear if this is a new onset flutter or if it is probably a new diagnosis of a paroxysmal atrial flutter. I contacted the hospitalist, Dr. Edmonds, to notify him of the EKG findings. The patient already been taken to the floor. He is comfortable managing her atrial flutter and obtaining rate control. He will contact me again if he needs any assistance. Clinical impression 1. Hip fracture 2. Atrial flutter with RVR with 2:1 conduction Related Data Home Medications ?Medication ?Instructions ?Recorded ?Confirmed multivitamin 1 tab PO QAM 10/28/23 11/19/23 Previous Rx's ?Medication ?Instructions ?Recorded tolterodine 2 mg tablet (Detrol) 2 mg PO BID #60 tabs 11/19/23 Allergies Allergy/AdvReac Type Severity Reaction Status Date / Time No Known Drug Allergies Allergy Verified 11/19/23 11:28 [facility] Medical History Incontinence in female ?R32 - Unspecified urinary incontinence (ICD-10) History of kidney stones (05/05/16) ?Z87.442 - Personal history of urinary calculi (ICD-10) Urticaria of unknown origin ?L50.9 - Urticaria, unspecified (ICD-10) Surgical History History of tonsillectomy ?Z90.89 - Acquired absence of other organs (ICD-10) History of vaginal delivery History of tubal ligation (1970) ?Z98.51 - Tubal ligation status (ICD-10) History of shoulder surgery ?Z98.890 - Other specified postprocedural states (ICD-10) History of phacoemulsification of cataract of both eyes with intraocular lens implantation (2014) ?Z98.41 - Cataract extraction status, right eye (ICD-10) ?Z98.42 - Cataract extraction status, left eye (ICD-10) ?Z96.1 - Presence of intraocular lens (ICD-10) Family History Mother Stroke, Onset Age: 90 Daughter Lung cancer Social History Narrative: , five kids, retired from [employer], nonsmoker, no EtOH What is your current living situation?: I presently have a place to live Problems where you live: no known problems Problems where you live details: N/A In the past 12 months, utilities in danger of being shut off: no In the past 12 mos, have been you worried that your food would run out before you had money to buy more?: never true In the past 12 mos, the food you bought just didn't last and you didn't have money to buy more?: never true Smoking Status: Former smoker How often do you have a drink containing alcohol: never AUDIT-C Alcohol total score: 0 Non-prescribed substance use: denies use How often does anyone, including family, friends and others, physically hurt you: never How often does anyone, including family, friends and others, insult or talk down to you: never How often does anyone, including family, friends and others, threaten you with harm: never How often does anyone, including family, friends and others, scream or curse at you: never service: No Exam Const: Vital Signs, click to edit/add: Vital Signs - 24 hr 06/09/24 22:04 06/09/24 23:15 06/09/24 23:16 Temperature Pulse Rate 104 H 103 H Pulse Rate [Right Radial] 99 Respiratory Rate 24 18 Blood Pressure 170/91 H Blood Pressure [Le ft Upper Arm] 151/82 H Pulse Oximetry 96 93 94 Oxygen Delivery Me thod Room Air Oxygen Flow Rate 06/09/24 23:31 06/09/24 23:32 06/09/24 23:45 Temperature Pulse Rate 103 H 100 106 H Pulse Rate [Right Radial] Respiratory Rate 18 Blood Pressure 169/87 H Blood Pressure [Le ft Upper Arm] Pulse Oximetry 92 91 92 Oxygen Delivery Me thod Oxygen Flow Rate 06/09/24 23:54 06/09/24 23:54 06/09/24 23:56 Temperature Pulse Rate Pulse Rate [Right Radial] Respiratory Rate 16 16 Blood Pressure Blood Pressure [Le ft Upper Arm] Pulse Oximetry 87 L 92 92 Oxygen Delivery Me thod Room Air Nasal Cannula Oxygen Flow Rate 2 06/09/24 23:57 06/10/24 00:00 06/10/24 00:01 Temperature Pulse Rate 104 H 105 H Pulse Rate [Right Radial] Respiratory Rate 18 Blood Pressure 165/87 H Blood Pressure [Le ft Upper Arm] Pulse Oximetry 92 96 98 Oxygen Delivery Me thod Nasal Cannula Oxygen Flow Rate 2 06/10/24 00:32 06/10/24 00:55 06/10/24 01:04 Temperature 98.2 F 98.2 F Pulse Rate Pulse Rate [Right Radial] 99 Respiratory Rate 18 18 Blood Pressure Blood Pressure [Le ft Upper Arm] 151/82 H Pulse Oximetry 90 Oxygen Delivery Me thod Nasal Cannula Oxygen Flow Rate 2 Course Vital Signs Vital signs: Initial Vital Signs Pulse Rate 99 06/09/24 22:04 Pulse Rhythm Regular 06/09/24 22:04 Respiratory Rate 24 06/09/24 22:04 Blood Pressure 151/82 H 06/09/24 22:04 Blood Pressure Mean 105 06/09/24 22:04 Pulse Oximetry 96 06/09/24 22:04 Oxygen Delivery Method Room Air 06/09/24 22:04 Vital Signs Pulse Rate 99 06/09/24 22:04 Respiratory Rate 24 06/09/24 22:04 Blood Pressure 151/82 H 06/09/24 22:04 Pulse Oximetry 96 06/09/24 22:04 Oxygen Delivery Method Room Air 06/09/24 22:04 Temperature 98.2 F 06/10/24 03:00 Pulse Rate 104 H 06/10/24 02:11 Respiratory Rate 18 06/10/24 03:00 Blood Pressure 136/79 06/10/24 03:00 Pulse Oximetry 94 06/10/24 03:00 Oxygen Delivery Method Nasal Cannula 06/10/24 03:00 Oxygen Flow Rate 2 06/10/24 03:00 Medications Administered Medications: Generic Name Dose Route Start Last Admin Trade Name Freq PRN Reason Stop Dose Admin Hydromorphone HCl 0.5 mg 06/10/24 01:29 06/10/24 01:51 Hydromorphone 0.5 Mg/0.5 Ml Inj IVP 0.5 mg Q2H PRN Administration Sodium Chloride 5 ml 06/10/24 01:09 06/10/24 01:50 Sodium Chloride 0.9 % (Flush) 10 Ml Syringe IVF 5 ml .FLUSH PRN Administration Discontinued Medications Generic Name Dose Route Start Last Admin Trade Name Freq PRN Reason Stop Dose Admin Hydromorphone HCl 0.5 mg 06/09/24 23:40 06/09/24 23:45 Hydromorphone 0.5 Mg/0.5 Ml Inj IVP 06/09/24 23:41 0.5 mg ONCE ONE Administration Sodium Chloride 500 mls @ 1,000 mls/hr 06/09/24 22:58 06/10/24 01:26 0.9 % Sodium Chloride 500 Ml IV 06/09/24 23:27 Infused .Q30M ONE Infusion Sodium Chloride 500 mls @ 500 mls/hr 06/10/24 01:41 06/10/24 04:42 0.9 % Sodium Chloride 500 Ml IV 06/10/24 02:40 Infused .Q1H ONE Infusion Metoprolol Tartrate 5 mg 06/10/24 01:21 06/10/24 01:35 Metoprolol Tartrate 1 Mg/Ml Inj IVP 06/10/24 01:22 Not Given ONCE ONE Morphine Sulfate 4 mg 06/09/24 22:58 06/09/24 23:10 Morphine 4 Mg/Ml Inj IVP 06/09/24 22:59 4 mg ONCE ONE Administration Potassium Chloride 40 meq 06/10/24 01:23 06/10/24 01:50 Potassium Chloride 10 Meq Capsule Er PO 06/10/24 01:24 40 meq ONCE ONE Administration Medical Decision Making Lab Data Labs: Lab Results 06/10/24 06/10/24 06/10/24 Range/Units 00:20 00:23 00:32 WBC 17.37 H (4.50-11.00) K/uL RBC 4.25 (4.00-5.20) m/uL Hgb 12.4 (12.0-16.0) gm/dL Hct 39.7 (33.0-51.0) % MCV 93 (80-100) fL MCH 29 (26-34) pg MCHC 31 L (32-36) gm/dL RDW Coeff of [place] 13.2 (11.5-15.5) % Plt Count 364 (140-440) K/uL Neut % (Auto) 87.1 H (42.0-72.0) % Lymph % (Auto) 6.7 L (20-44) % [place] % (Auto) 4.1 (0.0-11.0) % Eos % (Auto) 0.2 (0.0-7.0) % Baso % (Auto) 0.2 (0.0-3.0) % Neut # (Auto) 15.10 H (1.7-7.0) K/uL Lymph # (Auto) 1.20 (0.90-2.90) K/uL [place] # (Auto) 0.70 (0.00-0.90) K/UL Eos # (Auto) 0.00 (0.00-0.50) K/uL Baso # (Auto) 0.00 (0.00-0.30) K/uL Abs Immat Gran (auto) 0.30 (0.00-0.30) K/uL Imm/Tot Granulo (auto) 1.7 % Sodium 139 (135-149) mmol/L Potassium 3.5 L (3.6-5.1) mmol/L Chloride 104 (96-114) mmol/L Carbon Dioxide 24 (20-32) mmol/L Anion Gap 11 (7-15) mEq/L BUN 25 (7-30) mg/dL Creatinine 0.8 (0.5-1.5) mg/dL Estimated Creat Clear 40.04 Estimated GFR 75 ml/min Glucose 145 H (60-115) mg/dL Calcium 9.1 (8.4-10.6) mg/dL Total Bilirubin 0.3 (0.1-1.5) mg/dL Direct Bilirubin 0.0 (0.0-0.5) mg/dL AST 24 (12-35) U/L ALT 15 (4-35) U/L Alkaline Phosphatase 89 (40-150) U/L NT-Pro-B Natriuret Pep 262 pg/mL Total Protein 7.7 (6.0-8.3) g/dL Albumin 4.2 (3.3-5.0) g/dL Urine Color Yellow (Yellow) Urine Appearance Clear (Clear) Urine pH 6.0 (5.0-8.5) Ur Specific [place] 1.025 (1.000-1.030) Urine Protein 1+ A (Negative) Urine Glucose (UA) Negative (Negative) Urine Ketones 1+ A (Negative) Urine Blood Trace-intact A (Negative) Urine Nitrite Negative (Negative) Urine Bilirubin Negative (Negative) Urine Urobilinogen 1.0 (0.2-1.0) Ur Leukocyte Esterase Negative (Negative) Urine RBC 0-2 (0-2) Urine WBC 0-2 (0-5) Ur Squamous Epith Cells None (None-Few) Urine Bacteria Few A (None) Discharge Plan Discharge Clinical Impression: Hip fracture, Frequent falls Patient Disposition: Admitted As Observation Condition: Stable
[2024-06-10 06:20] LABS: Basophils Percent Auto 0.2 % (0.0-3.0); Eosinophils Percent Auto 0.1 % (0.0-7.0); Hematocrit 37.9 % (33.0-51.0); Hemoglobin* 11.8 gm/dL (12.0-16.0); Immature Granulocytes Pct Auto 0.7 %; Lymphocytes Percent Auto 12.8 % (20-44); Mean Corpuscular HGB Conc 31 gm/dL (32-36); Mean Corpuscular Hemoglobin 29 pg (26-34); Mean Corpuscular Volume 93 fL (80-100); Monocytes Percent Auto 7.8 % (0.0-11.0); Neutrophils Percent Auto 78.4 % (42.0-72.0); Platelet Count* 351 K/uL (140-440); RDW Coefficient of Variation % 13.2 % (11.5-15.5); Red Blood Count 4.07 m/uL (4.00-5.20); Slide Review Reflex No; White Blood Count* 12.22 K/uL (4.50-11.00)
[2024-06-10 06:32] LABS: Chloride* 107 mmol/L (96-114); Sodium* 137 mmol/L (135-149)
[2024-06-10 06:33] LABS: Potassium* 4.6 mmol/L (3.6-5.1)
[2024-06-10 06:35] LABS: Anion Gap 5 mEq/L (7-15); Carbon Dioxide* 25 mmol/L (20-32); Creatinine* 0.7 mg/dL (0.5-1.5); Est. Creatinine Clearance* 40.04; Estimated Glomerular Filt Rate 88 ml/min
[2024-06-10 06:36] LABS: Blood Urea Nitrogen* 20 mg/dL (7-30); Calcium* 8.5 mg/dL (8.4-10.6); Glucose* 132 mg/dL (60-115); Magnesium* 2.1 mg/dL (1.5-2.6)
[2024-06-10 07:18] LABS: TSH With Reflex to FT4* 0.814 uIU/mL (0.270-4.200)
--- NOTE | 2024-06-10 08:09 | PM.IMPN1 ---
Progress Note: A&P Assessment and plan (1) Hip fracture: Problem details: -CT hip: There is an impacted fracture of the right femoral neck noted. -contacted Orthopedics and they will take her to OR tomorrow morning. -keep NPO after midnight. -PT OT -elementary school social worker consult. Status: Acute (2) Frequent falls: Problem details: -family states that patient has been more confused at night and has been falling down, patient is describing a mechanical fall and that she just tripped by the treatment. -patient needs full evaluation by Physical therapy and Occupational therapy. Status: Acute (3) Atrial flutter with rapid ventricular response: Problem details: -Suspected by ED, my EKG interpretation is normal sinus rhythm, heart rate in the 90s her not in the 140s, I think EKG machine has been reading T-waves as extra QRS beats. Prolonged QTC interval. -echo was done today and it showed Normal sinus. 1. Normal LV size, normal global systolic function with an estimated EF of 65 - 70%. 2. Right ventricular cavity size is normal, global systolic RV function is normal. 3. Normal left atrium size. 4. No significant valve disease detected. -patient will need to follow up with PCP as an outpatient to follow up if patient is having any abnormal rhythm. Status: Suspected (4) Leukocytosis: Problem details: -could be reactive to trauma -has been trending down -will monitor Status: Acute Plan As above Time Spent With Patient Total time spent: Today I spent 50 minutes seeing the patient, reviewing Expanse and EPIC notes/diagnostics, discussing the care plan with our care time that includes social work, PT/OT, pharmacy, RT, retirement and documenting my impressions and plan in the medical record. Subjective Date Seen: 06/10/24 Interval history: Patient was seen and examined at bedside she states that she is still having pain at the area of the fracture but pain medication would control it. Discussed with the patient that her heart rhythm is normal right now. I mentioned that ED provider was concerned about an abnormal rhythm (aflutter), she would benefit from discussing this with her primary care physician as an outpatient. Exam Narrative: Exam Narrative: Physical exam GENERAL: Comfortable, no acute distress. HEAD AND NECK: Atraumatic, normocephalic CARDIOVASCULAR: RRR. Normal S1, S2. No murmurs. RESPIRATORY: Clear to auscultation B/L. Good air entry B/L. No wheezes or rhonchi. GASTROINTESTINAL: Not distended, not tender to palpation. NEUROLOGY: Alert, awake, . Normal speech. PSYCH: Normal mood, normal affect. Const: Vital Signs, click to edit/add: Vital Signs - 24 hr 06/09/24 22:04 06/09/24 23:15 06/09/24 23:16 Temperature Pulse Rate 104 H 103 H Pulse Rate [Right Radial] 99 Respiratory Rate 24 18 Blood Pressure 170/91 H Blood Pressure [Le ft Upper Arm] 151/82 H Blood Pressure [Ri ght Arm] Pulse Oximetry 96 93 94 Oxygen Delivery Me thod Room Air Oxygen Flow Rate 06/09/24 23:31 06/09/24 23:32 06/09/24 23:45 Temperature Pulse Rate 103 H 100 106 H Pulse Rate [Right Radial] Respiratory Rate 18 Blood Pressure 169/87 H Blood Pressure [Le ft Upper Arm] Blood Pressure [Ri ght Arm] Pulse Oximetry 92 91 92 Oxygen Delivery Me thod Oxygen Flow Rate 06/09/24 23:54 06/09/24 23:54 06/09/24 23:56 Temperature Pulse Rate Pulse Rate [Right Radial] Respiratory Rate 16 16 Blood Pressure Blood Pressure [Le ft Upper Arm] Blood Pressure [Ri ght Arm] Pulse Oximetry 87 L 92 92 Oxygen Delivery Me thod Room Air Nasal Cannula Oxygen Flow Rate 2 06/09/24 23:57 06/10/24 00:00 06/10/24 00:01 Temperature Pulse Rate 104 H 105 H Pulse Rate [Right Radial] Respiratory Rate 18 Blood Pressure 165/87 H Blood Pressure [Le ft Upper Arm] Blood Pressure [Ri ght Arm] Pulse Oximetry 92 96 98 Oxygen Delivery Me thod Nasal Cannula Oxygen Flow Rate 2 06/10/24 00:32 06/10/24 00:55 06/10/24 01:04 Temperature 98.2 F 98.2 F Pulse Rate Pulse Rate [Right Radial] 99 Respiratory Rate 18 18 Blood Pressure Blood Pressure [Le ft Upper Arm] 151/82 H Blood Pressure [Ri ght Arm] Pulse Oximetry 90 Oxygen Delivery Me thod Nasal Cannula Oxygen Flow Rate 2 06/10/24 01:11 06/10/24 01:12 06/10/24 02:11 Temperature 98.2 F Pulse Rate 104 H Pulse Rate [Right Radial] Respiratory Rate 18 Blood Pressure Blood Pressure [Le ft Upper Arm] Blood Pressure [Ri ght Arm] 151/94 H Pulse Oximetry 94 90 Oxygen Delivery Me thod Nasal Cannula Oxygen Flow Rate 2 06/10/24 03:00 Temperature 98.2 F Pulse Rate Pulse Rate [Right Radial] Respiratory Rate 18 Blood Pressure Blood Pressure [Le ft Upper Arm] Blood Pressure [Ri ght Arm] 136/79 Pulse Oximetry 94 Oxygen Delivery Me thod Nasal Cannula Oxygen Flow Rate 2 Labs Labs: Laboratory Results - last 24 hr 06/10/24 06/10/24 06/10/24 00:20 00:23 00:32 WBC 17.37 H RBC 4.25 Hgb 12.4 Hct 39.7 MCV 93 MCH 29 MCHC 31 L RDW Coeff of [place] 13.2 Plt Count 364 Neut % (Auto) 87.1 H Lymph % (Auto) 6.7 L [place] % (Auto) 4.1 Eos % (Auto) 0.2 Baso % (Auto) 0.2 Neut # (Auto) 15.10 H Lymph # (Auto) 1.20 [place] # (Auto) 0.70 Eos # (Auto) 0.00 Baso # (Auto) 0.00 Abs Immat Gran (auto) 0.30 Imm/Tot Granulo (auto) 1.7 Sodium 139 Potassium 3.5 L Chloride 104 Carbon Dioxide 24 Anion Gap 11 BUN 25 Creatinine 0.8 Estimated Creat Clear 40.04 Estimated GFR 75 Glucose 145 H Calcium 9.1 Magnesium Total Bilirubin 0.3 Direct Bilirubin 0.0 AST 24 ALT 15 Alkaline Phosphatase 89 NT-Pro-B Natriuret Pep 262 Total Protein 7.7 Albumin 4.2 TSH Urine Color Yellow Urine Appearance Clear Urine pH 6.0 Ur Specific [place] 1.025 Urine Protein 1+ A Urine Glucose (UA) Negative Urine Ketones 1+ A Urine Blood Trace-intact A Urine Nitrite Negative Urine Bilirubin Negative Urine Urobilinogen 1.0 Ur Leukocyte Esterase Negative Urine RBC 0-2 Urine WBC 0-2 Ur Squamous Epith Cells None Urine Bacteria Few A 06/10/24 06:12 WBC 12.22 H RBC 4.07 Hgb 11.8 L Hct 37.9 MCV 93 MCH 29 MCHC 31 L RDW Coeff of [place] 13.2 Plt Count 351 Neut % (Auto) 78.4 H Lymph % (Auto) 12.8 L [place] % (Auto) 7.8 Eos % (Auto) 0.1 Baso % (Auto) 0.2 Neut # (Auto) 9.60 H Lymph # (Auto) 1.60 [place] # (Auto) 1.00 H Eos # (Auto) 0.00 Baso # (Auto) 0.00 Abs Immat Gran (auto) 0.10 Imm/Tot Granulo (auto) 0.7 Sodium 137 Potassium 4.6 Chloride 107 Carbon Dioxide 25 Anion Gap 5 L BUN 20 Creatinine 0.7 Estimated Creat Clear 40.04 Estimated GFR 88 Glucose 132 H Calcium 8.5 Magnesium 2.1 Total Bilirubin Direct Bilirubin AST ALT Alkaline Phosphatase NT-Pro-B Natriuret Pep Total Protein Albumin TSH 0.814 Urine Color Urine Appearance Urine pH Ur Specific [place] Urine Protein Urine Glucose (UA) Urine Ketones Urine Blood Urine Nitrite Urine Bilirubin Urine Urobilinogen Ur Leukocyte Esterase Urine RBC Urine WBC Ur Squamous Epith Cells Urine Bacteria ECG Attestation: I personally reviewed and interpreted this ECG as follows: Prior ECG tracings: available for review Interpretation: my EKG interpretation is normal sinus rhythm, heart rate in the 90s her not in the 140s, I think EKG machine has been reading T-waves as extra QRS beats. Prolonged QTC interval.
[2024-06-10 08:29] LABS: Hemoglobin A1C* 5.1 % (0-5.6)
[2024-06-10] MEDS: ACETAMINOPHEN 325 MG TABLET 975 MG PO ×3 (09:13→20:13)
[2024-06-10] MEDS: METOPROLOL TARTRATE 25 MG TABLET PO ×2 (09:13→20:13)
[2024-06-10] MEDS: OXYCODONE 5 MG TABLET PO ×2 (09:43→13:55)
[2024-06-10] MEDS: HEPARIN 5,000 UNIT/0.5 ML INJ 5000 UNIT SUBCUT ×2 (14:35→22:39)
--- NOTE | 2024-06-10 18:44 | PC.NURSE ---
Pt alert, oriented and vitally stable. Pain rated 10/10 with movement throughout shift, prn oxy and dilaudid given, pt stated mild improvement. Pt on regular diet, tolerates well, pt NPO at midnight for surgery at 8 am, pt is aware. Arias cath is patent and draining appropriately. Repo q2h, refused throughout shift, educated, pt still refused. Tele NSR. Pt appears to be resting, call light within reach. ?
[2024-06-10] MEDS: TOLTERODINE TARTRATE 2 MG CAP.ER.24H PO (20:14)
[2024-06-11] VITALS (23 sets, daily range): BP systolic 97–147; BP diastolic 47–85; PULSE 68–90; RESP 14–20; TEMP 36.4–37.7; O2SAT 91–96
[2024-06-11] MEDS: SODIUM CHLORIDE 0.9 % (FLUSH) 10 ML SYRINGE 5 ML IVF ×2 (01:58→21:43)
[2024-06-11] MEDS: HYDROmorphone 0.5 mg/0.5 ml inj IVP ×4 (01:58→15:32)
[2024-06-11] MEDS: OXYCODONE 5 MG TABLET PO ×3 (01:58→21:42)
--- NOTE | 2024-06-11 05:14 | PC.NURSE ---
[id number] Pt slept ok during night, pain managed with po and iv prn medications. increased pain with repositioning. nails patent and draining. 2 LPM NC O2 to maintain O2 sats >90%. NPO since midnight.
[2024-06-11 06:24] LABS: Hematocrit 38.2 % (33.0-51.0); Hemoglobin* 11.7 gm/dL (12.0-16.0); Mean Corpuscular HGB Conc 31 gm/dL (32-36); Mean Corpuscular Hemoglobin 29 pg (26-34); Mean Corpuscular Volume 94 fL (80-100); Platelet Count* 304 K/uL (140-440); Red Blood Count 4.07 m/uL (4.00-5.20); White Blood Count* 11.47 K/uL (4.50-11.00)
[2024-06-11 06:39] LABS: Slide Review Reflex No
[2024-06-11 06:40] LABS: Chloride* 105 mmol/L (96-114); Potassium* 4.7 mmol/L (3.6-5.1); Sodium* 134 mmol/L (135-149)
[2024-06-11 06:43] LABS: Anion Gap 2 mEq/L (7-15); Carbon Dioxide* 27 mmol/L (20-32); Creatinine* 0.7 mg/dL (0.5-1.5); Est. Creatinine Clearance* 40.04; Estimated Glomerular Filt Rate 88 ml/min
[2024-06-11 06:44] LABS: Blood Urea Nitrogen* 15 mg/dL (7-30); Calcium* 8.7 mg/dL (8.4-10.6); Glucose* 116 mg/dL (60-115); Magnesium* 2.2 mg/dL (1.5-2.6)
[2024-06-11] MEDS: METOPROLOL TARTRATE 25 MG TABLET PO (07:34)
--- NOTE | 2024-06-11 07:39 | PM.IMPN1 ---
Progress Note: A&P Assessment and plan (1) Hip fracture: Problem details: -CT hip: There is an impacted fracture of the right femoral neck noted. -contacted Orthopedics and they will take her to OR tomorrow morning. -keep NPO after midnight. -PT OT -social media developer consult. Status: Acute (2) Frequent falls: Problem details: -family states that patient has been more confused at night and has been falling down, patient is describing a mechanical fall and that she just tripped by the treatment. -patient needs full evaluation by Physical therapy and Occupational therapy. Status: Acute (3) Atrial flutter with rapid ventricular response: Problem details: -Suspected by ED, my EKG interpretation is normal sinus rhythm, heart rate in the 90s her not in the 140s, I think EKG machine has been reading T-waves as extra QRS beats. Prolonged QTC interval. -echo was done today and it showed Normal sinus. 1. Normal LV size, normal global systolic function with an estimated EF of 65 - 70%. 2. Right ventricular cavity size is normal, global systolic RV function is normal. 3. Normal left atrium size. 4. No significant valve disease detected. -patient will need to follow up with PCP as an outpatient to follow up if patient is having any abnormal rhythm. Status: Suspected (4) Leukocytosis: Problem details: -could be reactive to trauma -has been trending down -will monitor Status: Acute Plan -Blood pressure 147/ 85 pulse is 87 beats per minute and telemetry showing sinus rhythm. -Patient takes beta-jhonny as her home medication we will give it to her this morning before surgery. -Echo did not show any valvular disease, normal systolic function with ejection fraction of about 65%. -Patient has been optimized for surgery today to the best of our abilities. Time Spent With Patient Total time spent: Today I spent 50 minutes seeing the patient, reviewing Expanse and EPIC notes/diagnostics, discussing the care plan with our care time that includes social work, PT/OT, pharmacy, RT, group home and documenting my impressions and plan in the medical record. Subjective Date Seen: 06/11/24 Interval history: Patient was seen and examined at bedside, Pt is to be taken to surgery now, she states that she is still having pain at the area of the fracture, we will give her a low-dose of Dilaudid this morning before she goes to surgery. Blood pressure 147/ 85 pulse is 87 beats per minute and telemetry showing sinus rhythm. Patient takes beta-jhonny as her home medication we will give it to her this morning before surgery. Echo did not show any valvular disease, normal systolic function with ejection fraction of about 65%. Patient has been optimized to surgery to the best of our abilities. Exam Narrative: Exam Narrative: Physical exam GENERAL: Anxious, SatO2 high 90s on RA.. HEAD AND NECK: Atraumatic, normocephalic CARDIOVASCULAR: RRR. Normal S1, S2. No murmurs. RESPIRATORY: Clear to auscultation B/L. Good air entry B/L. No wheezes or rhonchi. GASTROINTESTINAL: Not distended, not tender to palpation. NEUROLOGY: Alert, awake. Normal speech. Const: Vital Signs, click to edit/add: Vital Signs - 24 hr 06/10/24 11:00 06/10/24 15:00 06/10/24 15:00 Temperature 97.7 F Pulse Rate Pulse Rate [Pulse Oximeter] 89 89 Respiratory Rate 16 16 16 Blood Pressure [Ri ght Arm] 129/68 Pulse Oximetry 96 96 Oxygen Delivery Me thod Room Air Room Air Oxygen Flow Rate 2 06/10/24 15:00 06/10/24 15:00 06/10/24 15:08 Temperature 97.9 F Pulse Rate 59 L Pulse Rate [Pulse Oximeter] 72 Respiratory Rate 16 Blood Pressure [Ri ght Arm] 130/57 L Pulse Oximetry 96 96 Oxygen Delivery Me thod Room Air Oxygen Flow Rate 06/10/24 19:00 06/10/24 23:00 06/10/24 23:00 Temperature 97.8 F Pulse Rate Pulse Rate [Pulse Oximeter] 74 Respiratory Rate 16 16 Blood Pressure [Ri ght Arm] 121/62 Pulse Oximetry 94 93 93 Oxygen Delivery Me thod Nasal Cannula Nasal Cannula Oxygen Flow Rate 1 1 06/10/24 23:00 06/10/24 23:13 06/11/24 02:41 Temperature 97.7 F 97.8 F Pulse Rate 72 Pulse Rate [Pulse Oximeter] 77 81 Respiratory Rate 16 14 Blood Pressure [Ri ght Arm] 126/60 126/56 L Pulse Oximetry 93 94 Oxygen Delivery Me thod Nasal Cannula Nasal Cannula Oxygen Flow Rate 1 2 Labs Labs: Laboratory Results - last 24 hr 06/10/24 06/11/24 06:12 05:53 WBC 11.47 H RBC 4.07 Hgb 11.7 L Hct 38.2 MCV 94 MCH 29 MCHC 31 L Plt Count 304 Sodium 134 L Potassium 4.7 Chloride 105 Carbon Dioxide 27 Anion Gap 2 L BUN 15 Creatinine 0.7 Estimated Creat Clear 40.04 Estimated GFR 88 Glucose 116 H Hemoglobin A1c 5.1 Calcium 8.7 Magnesium 2.2
--- NOTE | 2024-06-11 07:54 | PM.ORCN ---
History of Present Illness HPI Date Seen: 06/11/24 Requesting physician: Lena Pierce Chief complaint: Fell,right leg pain Narrative: Vidya is a pleasant 79-year-old female who sustained a right hip injury after she tripped over a treadmill and fell onto her right hip. Following the injury, she was unable to bear weight on her right lower extremity. She was subsequently brought to to the [facility] Emergency Department by EMS where she was diagnosed with a displaced right hip femoral neck fracture and was admitted to the hospitalist service. Cardiac workup to include echocardiogram has since been performed patient has been medically optimized for surgery. This morning she continues to have pain which he localized to the right hip. Pain is exacerbated by any attempted movement. She denies any other injuries. [facility] Medical History Incontinence in female ?R32 - Unspecified urinary incontinence (ICD-10) History of kidney stones (05/05/16) ?Z87.442 - Personal history of urinary calculi (ICD-10) Urticaria of unknown origin ?L50.9 - Urticaria, unspecified (ICD-10) Surgical History History of tonsillectomy ?Z90.89 - Acquired absence of other organs (ICD-10) History of vaginal delivery History of tubal ligation (1970) ?Z98.51 - Tubal ligation status (ICD-10) History of shoulder surgery ?Z98.890 - Other specified postprocedural states (ICD-10) History of phacoemulsification of cataract of both eyes with intraocular lens implantation (2014) ?Z98.41 - Cataract extraction status, right eye (ICD-10) ?Z98.42 - Cataract extraction status, left eye (ICD-10) ?Z96.1 - Presence of intraocular lens (ICD-10) Family History Mother Stroke, Onset Age: 90 Daughter Lung cancer Social History Narrative: , five kids, retired from [employer], nonsmoker, no EtOH What is your current living situation?: I presently have a place to live Problems where you live: no known problems Problems where you live details: N/A In the past 12 months, utilities in danger of being shut off: no In the past 12 mos, have been you worried that your food would run out before you had money to buy more?: never true In the past 12 mos, the food you bought just didn't last and you didn't have money to buy more?: never true Smoking Status: Former smoker How often do you have a drink containing alcohol: never AUDIT-C Alcohol total score: 0 Non-prescribed substance use: denies use How often does anyone, including family, friends and others, physically hurt you: never How often does anyone, including family, friends and others, insult or talk down to you: never How often does anyone, including family, friends and others, threaten you with harm: never How often does anyone, including family, friends and others, scream or curse at you: never service: No Meds Home Medications and Allergies Home Medications ?Medication ?Instructions ?Recorded ?Confirmed ?Type multivitamin 1 tab PO QAM 10/28/23 06/10/24 History Allergies Allergy/AdvReac Type Severity Reaction Status Date / Time No Known Drug Allergies Allergy Verified 11/19/23 11:28 Ortho Exam Narrative Exam Narrative: General: Patient is alert and oriented to name and place but not time. Musculoskeletal: Right lower extremity was examined. Right leg was shortened and externally rotated. She was able to flex and extend her toes and ankle. Right foot was warm and well perfused with 2+ DP and PT pulses. Const Vital Signs, click to edit/add: Vital Signs - 24 hr 06/10/24 11:00 06/10/24 15:00 06/10/24 15:00 Temperature 97.7 F Pulse Rate Pulse Rate [Pulse Oximeter] 89 89 Respiratory Rate 16 16 16 Blood Pressure [Right Arm] 129/68 Pulse Oximetry 96 96 Oxygen Delivery Method Room Air Room Air Oxygen Flow Rate 2 06/10/24 15:00 06/10/24 15:00 06/10/24 15:08 Temperature 97.9 F Pulse Rate 59 L Pulse Rate [Pulse Oximeter] 72 Respiratory Rate 16 Blood Pressure [Right Arm] 130/57 L Pulse Oximetry 96 96 Oxygen Delivery Method Room Air Oxygen Flow Rate 06/10/24 19:00 06/10/24 23:00 06/10/24 23:00 Temperature 97.8 F Pulse Rate Pulse Rate [Pulse Oximeter] 74 Respiratory Rate 16 16 Blood Pressure [Right Arm] 121/62 Pulse Oximetry 94 93 93 Oxygen Delivery Method Nasal Cannula Nasal Cannula Oxygen Flow Rate 1 1 06/10/24 23:00 06/10/24 23:13 06/11/24 02:41 Temperature 97.7 F 97.8 F Pulse Rate 72 Pulse Rate [Pulse Oximeter] 77 81 Respiratory Rate 16 14 Blood Pressure [Right Arm] 126/60 126/56 L Pulse Oximetry 93 94 Oxygen Delivery Method Nasal Cannula Nasal Cannula Oxygen Flow Rate 1 2 Results Labs Labs: Laboratory Results - last 48 hr 06/10/24 06/10/24 06/10/24 00:20 00:23 00:32 WBC 17.37 H RBC 4.25 Hgb 12.4 Hct 39.7 MCV 93 MCH 29 MCHC 31 L RDW Coeff of [place] 13.2 Plt Count 364 Neut % (Auto) 87.1 H Lymph % (Auto) 6.7 L [place] % (Auto) 4.1 Eos % (Auto) 0.2 Baso % (Auto) 0.2 Neut # (Auto) 15.10 H Lymph # (Auto) 1.20 [place] # (Auto) 0.70 Eos # (Auto) 0.00 Baso # (Auto) 0.00 Abs Immat Gran (auto) 0.30 Imm/Tot Granulo (auto) 1.7 Sodium 139 Potassium 3.5 L Chloride 104 Carbon Dioxide 24 Anion Gap 11 BUN 25 Creatinine 0.8 Estimated Creat Clear 40.04 Estimated GFR 75 Glucose 145 H Hemoglobin A1c Calcium 9.1 Magnesium Total Bilirubin 0.3 Direct Bilirubin 0.0 AST 24 ALT 15 Alkaline Phosphatase 89 NT-Pro-B Natriuret Pep 262 Total Protein 7.7 Albumin 4.2 TSH Urine Color Yellow Urine Appearance Clear Urine pH 6.0 Ur Specific [place] 1.025 Urine Protein 1+ A Urine Glucose (UA) Negative Urine Ketones 1+ A Urine Blood Trace-intact A Urine Nitrite Negative Urine Bilirubin Negative Urine Urobilinogen 1.0 Ur Leukocyte Esterase Negative Urine RBC 0-2 Urine WBC 0-2 Ur Squamous Epith Cells None Urine Bacteria Few A 06/10/24 06/11/24 06:12 05:53 WBC 12.22 H 11.47 H RBC 4.07 4.07 Hgb 11.8 L 11.7 L Hct 37.9 38.2 MCV 93 94 MCH 29 29 MCHC 31 L 31 L RDW Coeff of [place] 13.2 Plt Count 351 304 Neut % (Auto) 78.4 H Lymph % (Auto) 12.8 L [place] % (Auto) 7.8 Eos % (Auto) 0.1 Baso % (Auto) 0.2 Neut # (Auto) 9.60 H Lymph # (Auto) 1.60 [place] # (Auto) 1.00 H Eos # (Auto) 0.00 Baso # (Auto) 0.00 Abs Immat Gran (auto) 0.10 Imm/Tot Granulo (auto) 0.7 Sodium 137 134 L Potassium 4.6 4.7 Chloride 107 105 Carbon Dioxide 25 27 Anion Gap 5 L 2 L BUN 20 15 Creatinine 0.7 0.7 Estimated Creat Clear 40.04 40.04 Estimated GFR 88 88 Glucose 132 H 116 H Hemoglobin A1c 5.1 Calcium 8.5 8.7 Magnesium 2.1 2.2 Total Bilirubin Direct Bilirubin AST ALT Alkaline Phosphatase NT-Pro-B Natriuret Pep Total Protein Albumin TSH 0.814 Urine Color Urine Appearance Urine pH Ur Specific [place] Urine Protein Urine Glucose (UA) Urine Ketones Urine Blood Urine Nitrite Urine Bilirubin Urine Urobilinogen Ur Leukocyte Esterase Urine RBC Urine WBC Ur Squamous Epith Cells Urine Bacteria Diagnostic results Additional Comments: X-rays of the right hip and pelvis performed 06/09/2024 were reviewed. These demonstrated displaced right hip femoral neck fracture with minimal degenerative changes. Assessment and Plan Assessment and plan (1) Closed displaced fracture of right femoral neck: Status: Acute (2) Hip fracture: Problem comment: -CT hip: There is an impacted fracture of the right femoral neck noted. -contacted Orthopedics and they will take her to OR tomorrow morning. -keep NPO after midnight. -PT OT -social services coordinator consult. Status: Acute Total time spent: Total time spent is greater than 50% in coordination of care (as documented) at patient's floor/unit and/or counseling patient: (3) Frequent falls: Problem comment: -family states that patient has been more confused at night and has been falling down, patient is describing a mechanical fall and that she just tripped by the treatment. -patient needs full evaluation by Physical therapy and Occupational therapy. Status: Acute Total time spent: Total time spent is greater than 50% in coordination of care (as documented) at patient's floor/unit and/or counseling patient: (4) Atrial flutter with rapid ventricular response: Problem comment: -Suspected by ED, my EKG interpretation is normal sinus rhythm, heart rate in the 90s her not in the 140s, I think EKG machine has been reading T-waves as extra QRS beats. Prolonged QTC interval. -echo was done today and it showed Normal sinus. 1. Normal LV size, normal global systolic function with an estimated EF of 65 - 70%. 2. Right ventricular cavity size is normal, global systolic RV function is normal. 3. Normal left atrium size. 4. No significant valve disease detected. -patient will need to follow up with PCP as an outpatient to follow up if patient is having any abnormal rhythm. Status: Suspected Total time spent: Total time spent is greater than 50% in coordination of care (as documented) at patient's floor/unit and/or counseling patient: (5) Leukocytosis: Problem comment: -could be reactive to trauma -has been trending down -will monitor Status: Acute Total time spent: Total time spent is greater than 50% in coordination of care (as documented) at patient's floor/unit and/or counseling patient: Plan Patient has a displaced right hip femoral neck fracture. Risks and benefits of operative treatment and alternatives to surgery were discussed with the patient and her . Recommendation was made for surgical intervention consisting of right hip hemiarthroplasty to allow for early mobilization and advancement of weight-bearing, and decreased pain. Risks of surgery to include, but not limited to, infection, neurovascular injury, hip dislocation, hardware complications, deep vein thrombosis, pulmonary embolism, heart attack, stroke, and even were discussed with patient and her . All of their questions were answered and informed consent was obtained. After discussion, they were in agreement with plan to proceed with surgery. Patient has been admitted to the hospitalist for perioperative medical management. She has been medically optimized and cleared for the planned surgical procedure . She is to remain on bedrest with plan for surgery this morning. She has been NPO since midnight for anticipated surgery.
--- NOTE | 2024-06-11 07:55 | PM.ORPRC ---
Procedure Note Date of procedure: 06/11/24 Procedure: PREOPERATIVE DIAGNOSIS: 1. Closed, displaced, right hip femoral neck fracture POSTOPERATIVE DIAGNOSIS: 1. Closed, displaced, right hip femoral neck fracture PROCEDURE: 1. Right hip cemented bipolar hemiarthroplasty SURGEON: Larry Florentino MD. FERTILIZER PROCESSING SUPERVISOR: Kelsy Madrigal P.A.-C. - A surgical supplies sterilizer was critical for this case to aid in patient positioning, tissue retraction, limb manipulation/positioning, and wound closure. ANESTHESIA: Spinal anesthetic IMPLANTS: DePuy Seymour femoral stem size 2 with standard offset; 8.5 mm stem centralizer; DePuy 28mm +1.5 femoral head; DePuy bipolar femoral head with 28 mm inner diameter and 47 mm outer diameter FINDINGS: Displaced femoral neck fracture EBL: 100 mL COMPLICATIONS: None evident INDICATIONS: The patient is a pleasant 79-year-old female who sustained a right hip injury after a ground level fall. Upon admission to the emergency department, the patient was found to have a displaced right femoral neck fracture. Treatment options were discussed and recommendation was made for surgical intervention consisting of bipolar right hip hemiarthroplasty. Prior to surgery, the risks and benefits of treatment were discussed with patient, all questions answered, and informed consent was obtained. DESCRIPTION OF PROCEDURE: Prior to surgery the operative hip was marked. The patient was brought to the operating room and spinal anesthesia was administered. After induction of anesthesia was undertaken, tranexamic acid and 1g IV Ancef were administered. Patient was then rotated into the left lateral decubitus position. An axillary roll was placed and all bony prominences were well padded. A surgical time-out was performed confirming patient identity, surgical site, and surgical procedure. The right hip and lower extremity were prepped and draped in the appropriate sterile fashion. A posterior lateral incision was made centered over the posterior aspect of the greater trochanter. Incision was carried through subcutaneous tissues. The IT band and gluteus lizeth fascia were identified. IT band and gluteus lizeth fascia were then incised in line with the incision and Charnley retractor was placed. Gluteus medius was retracted anteriorly. Piriformis and short external rotators were identified. Piriformis was tagged with a #1 Ethibond stitch and was released off its bony insertion. The short external rotators and capsule were also released off the femur, and an L-shaped capsulotomy was performed. These tissues were also tagged with a #1 Ethibond stitch. Once the capsulotomy was completed, a femoral neck osteotomy was then performed approximately 1 cm proximal to the lesser trochanter. The femoral head was then removed with a corkscrew device and all bony fragments were removed from the acetabulum. Femoral head measured 47 mm in diameter. We then turned our attention back to the proximal femur. A [employer] cutter osteotome was used to enter the proximal femur. A canal finder was then used to identify the center of the canal. A lateralizing Reamer was used, and the canal was reamed up to the appropriate size. We then broached sequentially to a size 2 broach, and trialed with the 28 mm +1.5 femoral head and 27 mm outer diameter head. Excellent stability with full range of motion, and good soft tissue tension was confirmed. The hip was then dislocated, and the trial components were removed. The distal cement restrictor was then placed. The canal was copiously irrigated and dried. Cement was then pressurized into the canal. A size 2 standard offset Seymour stem was then inserted into the canal in the appropriate anteversion. We removed excess cement and allowed the cement time to cure. Once the cement had cured, we dried the trunnion and impacted the formal 28 mm +1.5 femoral head and 47 mm bipolar femoral head. The hip was then reduced, and we checked stability again. With these components in place, we had appropriate soft tissue tension, good leg length, and excellent stability. The hip was then irrigated with copious amounts of normal saline. Posterior capsule was repaired with#1 Ethibond [id number] interrupted sutures. The piriformis and short external rotators were repaired through bone tunnels into the greater trochanter using #2 FiberWire sutures. The IT band was closed with #1 Ethibond [id number] interrupted sutures followed by running Stratafix stitch. Subcutaneous tissues were closed with 2-0 Vicryl inverted interrupted stitches followed by a running 2-0 Stratafix stitch and Dermabond surgical glue. Mepilex dressing was applied, and an abduction pillow was placed between the patient's legs. Patient was then rotated into the supine position and awoken from anesthesia. Patient was then transferred to the recovery room in stable condition. PLAN: 1. Patient will be readmitted to the hospitalist service for postoperative medical management. 2. Weight bearing: Weightbearing as tolerated 3. Posterior hip precautions to operative hip. Abduction pillow to remain in place while patient is in bed. 4. Postoperative antibiotics: Ancef x2 doses postoperatively per protocol 5. Pain control: Oral and IV pain medications. 6. PT/OT consults for ambulation assistance/mobility education 7. DVT prophylaxis: Continue mechanical SCDs while in the hospital. -aspirin 81 mg b.i.d. for 35 days 8. Follow up in Orthopedic Clinic in 2 weeks
[2024-06-11] MEDS: CEFAZOLIN 1 GM inj IVP (08:35)
--- NOTE | 2024-06-11 10:14 | CRLHL7_ITS ---
For Patients: As a result of the Cures Act, medical imaging exams and procedure reports are released immediately into your electronic medical record. You may view this report before your referring provider. If you have questions, please contact your health care provider. INDICATION: Postop ORIF. TECHNIQUE: AP pelvis and lateral right hip. FINDINGS: Right hip hemiarthroplasty in place. Components appear well seated. No fracture. Adjacent postop soft tissue air. Dictated by Robi Killian MD @ 06/11/2024 11:36:54 AM (Electronically Signed)
--- NOTE | 2024-06-11 10:52 | P.ANES_ITS ---
Anesthesia Charges Start Date/Time Anesthesia Start Date: 06/11/24 Anesthesia Start Time: 08:06 Stop Date/Time Anesthesia Stop Date: 06/11/24 Anesthesia Stop Time: 10:47 Summary Emergency: OTOLARYNGOLOGY SURGEON
[2024-06-11] MEDS: 0.9 % SODIUM CHLORIDE 500 ML 500 ML IV (13:30)
[2024-06-11] MEDS: CEFAZOLIN 1 GM in 0.9 % SODIUM CHLORIDE Mini-bag 100 ML IVPB ×2 (15:23→21:42)
[2024-06-11] MEDS: ACETAMINOPHEN 500 MG TABLET 1000 MG PO (17:58)
--- NOTE | 2024-06-11 19:15 | PC.NURSE ---
Pt alert, oriented and vitally stable. Pt went to surgery at 0800. Returned at 1123. Pt had softer bps when initially arrived, MD (Dr. Pierce) notified, IV bolus given, pressures improved. Pain started at 0/0, then was 9/10?with movement throughout shift, prn oxy and dilaudid given, pt stated improvement. Pt on regular diet, tolerates well Pt up with staff at bedside, tolerated OK. Pt had SOB, though stated this is chronic and happens often. Pt needs encouragement with movement and was educated on benefits. Abductor pillow in place now. Arias cath is patent and draining appropriately. Tele NSR. Pt appears to be resting, call light within reach. ?
[2024-06-11] MEDS: ASPIRIN 81 MG TABLET EC PO (21:42)
[2024-06-11] MEDS: LACTATED RINGERS 500 ML 500 ML 250 ML IV (22:21)
[2024-06-11] MEDS: LACTATED RINGERS 1000 ML 1,000 ML 75 ML IV (22:21)
[2024-06-12] VITALS (8 sets, daily range): BP systolic 99–154; BP diastolic 57–81; PULSE 79–99; RESP 16–20; TEMP 36.4–37.3; O2SAT 86–99
[2024-06-12] MEDS: SODIUM CHLORIDE 0.9 % (FLUSH) 10 ML SYRINGE 5 ML IVF ×2 (02:43→20:31)
[2024-06-12] MEDS: HYDROmorphone 0.5 mg/0.5 ml inj IVP (02:43)
--- NOTE | 2024-06-12 05:56 | PC.NURSE ---
[id number] Pt restless during shift, unable to ambulate. Pt stood up at bedside, tolerated for a very short period of time before becoming light headed and dizzy and needing to sit down, attempted twice with the same result. BP 117/47 after attempt to ambulate. Pt was able to take 1 step. Ice to R hip during shift, abductor in place while in bed, removed for 1 hour at 0530, bruise noted to R hip, posterior approach dressing C/D/I. pain controlled with PRN pain medication. Low urine output (50cc) noted in the evening, MD updated and IV bolus/fluids started, increased urine output as of this morning. denies N/V, chest pain, headache.
[2024-06-12 06:46] LABS: Hemoglobin* 10.8 gm/dL (12.0-16.0); Mean Corpuscular HGB Conc 31 gm/dL (32-36); Mean Corpuscular Hemoglobin 29 pg (26-34); Mean Corpuscular Volume 94 fL (80-100); Platelet Count* 281 K/uL (140-440); Red Blood Count 3.73 m/uL (4.00-5.20); White Blood Count* 9.91 K/uL (4.50-11.00)
[2024-06-12 06:48] LABS: Slide Review Reflex No
[2024-06-12 06:59] LABS: Chloride* 103 mmol/L (96-114)
[2024-06-12 07:00] LABS: Potassium* 4.1 mmol/L (3.6-5.1); Sodium* 135 mmol/L (135-149)
[2024-06-12 07:02] LABS: Creatinine* 0.7 mg/dL (0.5-1.5); Est. Creatinine Clearance* 40.04; Estimated Glomerular Filt Rate 88 ml/min
[2024-06-12 07:03] LABS: Anion Gap 3 mEq/L (7-15); Blood Urea Nitrogen* 13 mg/dL (7-30); Calcium* 8.4 mg/dL (8.4-10.6); Carbon Dioxide* 29 mmol/L (20-32); Glucose* 123 mg/dL (60-115)
[2024-06-12 07:58] LABS: Troponin I* < 0.01 ng/mL (0.01-0.04)
[2024-06-12] MEDS: OXYCODONE 5 MG TABLET PO ×2 (08:03→15:38)
--- NOTE | 2024-06-12 08:12 | P.ORPN_ITS ---
Subjective Subjective Time Seen by Provider: 08:00 Date Seen: 06/12/24 Principal diagnosis: Day 1 s/p right bipolar hemiarthroplasty Interval history: Vidya is resting comfortably in her recliner. She c/o increase in right hip pain that she ranks 10 out of 10 due to this transfer. Denies: chest pain, nausea, vomiting, numbness/tingling distally. Admits to shortness of breath that she explains is new since her surgery. Hbg this AM: 10.8. Surgical estimated blood loss: 100 mL. SpO2 98% during our visit. SOB likely due to exertion with transfer to her chair. Patient also denies postop bowel movement, but admits to flatulence. Vidya has ambulated already this morning with her walker. Dez () and daughter (Carina) are not present during our visit. Ortho Exam Narrative Exam Narrative: Incision/Dressing: Dressing appears clean and dry. No drainage present. Mepilex intact. Right hip appears moderately swollen but supple with no obvious erythema, fluctuance or excessive warmth. No erythematous streaking. Small area of ecchymosis present right lateral hip from the initial fall. Warmth around the wound is appropriate. Ice is being utilized as needed. CMS: Intact distally with 2+ Dorsalis pedis and Posterior Tibial pulses. 5/5 motor strength dorsal and plantar flexion. Confirmed sensation distally. Calf: Bilateral calves are supple, with no swelling, pain, tenderness, erythema, discoloration or coolness to the touch. Constitutional: Patient is in no acute distress and converses some shortness of breath. Patient is pleasant and cooperative. Patient is alert and oriented to person and place. Patient is unaware on the date, but did know that the [employer] were playing tonight. Const Vital Signs, click to edit/add: Vital Signs - 24 hr 06/11/24 10:42 06/11/24 10:45 06/11/24 10:50 Temperature 99.8 F H Pulse Rate 76 77 77 Pulse Rate [Pulse Oximeter] Respiratory Rate 14 18 16 Blood Pressure 107/58 L 109/65 121/67 Blood Pressure [Left Arm] Pulse Oximetry 95 96 95 Oxygen Delivery Method Nasal Cannula Nasal Cannula Oxygen Flow Rate 4 4 06/11/24 10:55 06/11/24 11:00 06/11/24 11:05 Temperature 99.2 F Pulse Rate 77 78 79 Pulse Rate [Pulse Oximeter] Respiratory Rate 18 14 18 Blood Pressure 113/65 103/49 L 114/74 Blood Pressure [Left Arm] Pulse Oximetry 94 95 95 Oxygen Delivery Method Nasal Cannula Nasal Cannula Nasal Cannula Oxygen Flow Rate 4 4 4 06/11/24 11:10 06/11/24 11:15 06/11/24 11:23 Temperature 99.1 F 97.6 F Pulse Rate 76 78 68 Pulse Rate [Pulse Oximeter] Respiratory Rate 18 18 16 Blood Pressure 97/54 L 103/76 130/62 Blood Pressure [Left Arm] Pulse Oximetry 95 95 91 Oxygen Delivery Method Nasal Cannula Nasal Cannula Nasal Cannula Oxygen Flow Rate 3 3 2 06/11/24 11:23 06/11/24 11:30 06/11/24 11:45 Temperature 98.1 F 97.8 F 98.1 F Pulse Rate 68 80 78 Pulse Rate [Pulse Oximeter] Respiratory Rate 16 16 16 Blood Pressure 130/62 115/79 117/64 Blood Pressure [Left Arm] Pulse Oximetry 92 92 92 Oxygen Delivery Method Nasal Cannula Nasal Cannula Nasal Cannula Oxygen Flow Rate 2 2 2 06/11/24 12:00 06/11/24 12:15 06/11/24 12:30 Temperature 97.9 F 97.8 F 97.8 F Pulse Rate 78 77 80 Pulse Rate [Pulse Oximeter] Respiratory Rate 16 16 16 Blood Pressure 126/62 112/62 119/57 L Blood Pressure [Left Arm] Pulse Oximetry 92 92 92 Oxygen Delivery Method Nasal Cannula Nasal Cannula Nasal Cannula Oxygen Flow Rate 2 2 2 06/11/24 13:00 06/11/24 14:00 06/11/24 15:00 Temperature 97.8 F 97.9 F 98.1 F Pulse Rate 79 87 84 Pulse Rate [Pulse Oximeter] Respiratory Rate 16 16 16 Blood Pressure 118/60 122/65 126/60 Blood Pressure [Left Arm] Pulse Oximetry 92 94 94 Oxygen Delivery Method Nasal Cannula Nasal Cannula Nasal Cannula Oxygen Flow Rate 2 2 2 06/11/24 15:00 06/11/24 15:00 06/11/24 15:00 Temperature Pulse Rate Pulse Rate [Pulse Oximeter] Respiratory Rate 16 16 Blood Pressure Blood Pressure [Left Arm] Pulse Oximetry 95 95 Oxygen Delivery Method Nasal Cannula Oxygen Flow Rate 2 06/11/24 15:00 06/11/24 15:00 06/11/24 16:00 Temperature 98.5 F 98.5 F Pulse Rate 82 85 Pulse Rate [Pulse Oximeter] Respiratory Rate 16 16 Blood Pressure 117/62 Blood Pressure [Left Arm] Pulse Oximetry 95 95 Oxygen Delivery Method Nasal Cannula Nasal Cannula Oxygen Flow Rate 2 2 06/11/24 17:00 06/11/24 19:00 06/11/24 23:00 Temperature 98.6 F 98.1 F Pulse Rate 88 Pulse Rate [Pulse Oximeter] 89 Respiratory Rate 16 20 Blood Pressure 110/54 L Blood Pressure [Left Arm] 117/47 L Pulse Oximetry 93 96 93 Oxygen Delivery Method Nasal Cannula Nasal Cannula Oxygen Flow Rate 2 2 06/11/24 23:00 06/11/24 23:00 06/11/24 23:00 Temperature 98.5 F Pulse Rate 87 Pulse Rate [Pulse Oximeter] 88 Respiratory Rate 20 20 Blood Pressure Blood Pressure [Left Arm] 130/65 Pulse Oximetry 94 94 Oxygen Delivery Method Nasal Cannula Nasal Cannula Oxygen Flow Rate 1 1 06/12/24 03:00 Temperature 99.2 F Pulse Rate Pulse Rate [Pulse Oximeter] 92 Respiratory Rate 18 Blood Pressure Blood Pressure [Left Arm] 133/68 Pulse Oximetry 94 Oxygen Delivery Method Nasal Cannula Oxygen Flow Rate 1 Assessment and Plan Assessment and plan (1) Hip fracture: Problem details: Day 1 s/p right bipolar hemiarthroplasty. DOS: 06/11/24; Dr. Florentino. Status: Acute Assessment and Plan: - Complete 23 hour perioperative antibiotics. - PT/OT consults for education and assistance. Posterior Hip Precautions. - Weight bear as tolerated with a walker for assistance. - Prescribed analgesics as needed. Patient is content with current narcotic medications. Minimize narcotic pain medication use; wean off and discontinue as soon as possible. - DVT prophylaxis: aspirin 81 mg BID x 35 days. Also, frequent ambulation and ankle pumps when sedentary. - Social consult for discharge planning. I anticipate Vidya will require SNF placement upon discharge. - Return to clinic in 2 weeks with either myself or Dr. Larry Florentino for wound check and Orthopedic follow-up appointment. - Nursing staff at SNF will remove Mepilex dressing in 1 week or sooner if beco mes saturated. Patient may shower. Dressing is waterproof. - Phone Orthopedics with any questions or concerns. [phone] Total Time Spent Total time spent: 20
[2024-06-12] MEDS: ASPIRIN 81 MG TABLET EC PO ×2 (08:44→20:31)
--- NOTE | 2024-06-12 09:08 | P.IMPN_ITS ---
Progress Note: A&P Assessment and plan (1) Hip fracture: Problem details: s/p right bipolar hemiarthroplasty. DOS: 06/11/24; Dr. Florentino. Status: Acute (2) COPD (chronic obstructive pulmonary disease): Problem details: -Patient shows shortness of breath on exertion, she mentioned that it is a chronic problem because she has COPD. -She has been smoking for long time and quit smoking 4 years ago. - EKG and troponin were done this a.m. and were unremarkable. -patient does not follow up regularly with PCP, she is not currently on any inhalers. We recommend following up with her PCP to do more workup as an outpatient. -ordered budesonide + Duonebs nebulizers. Status: Acute (3) Frequent falls: Problem details: -family states that patient has been more confused at night and has been falling down, patient is describing a mechanical fall and that she just tripped by the treatment. -patient needs full evaluation by Physical therapy and Occupational therapy. Status: Acute (4) Atrial flutter with rapid ventricular response: Problem details: -Suspected by ED, my EKG interpretation is normal sinus rhythm, heart rate in the 90s her not in the 140s, I think EKG machine has been reading T-waves as extra QRS beats. Prolonged QTC interval. -echo was done today and it showed Normal sinus. 1. Normal LV size, normal global systolic function with an estimated EF of 65 - 70%. 2. Right ventricular cavity size is normal, global systolic RV function is normal. 3. Normal left atrium size. 4. No significant valve disease detected. -patient will need to follow up with PCP as an outpatient to follow up if patient is having any abnormal rhythm. Status: Suspected (5) Leukocytosis: Problem details: -resolved -could be reactive to trauma -has been trending down -will monitor Status: Resolved Plan As above Time Spent With Patient Total time spent: Today I spent 50 minutes seeing the patient, reviewing [facility] and EPIC notes/diagnostics, discussing the care plan with our care time that includes social work, PT/OT, pharmacy, RT, prison and documenting my impressions and plan in the medical record. Subjective Date Seen: 06/12/24 Interval history: Patient was seen and examined at bedside. Patient shows shortness of breath on exertion, she mentioned that it is a chronic problem because she has COPD. She has been smoking for long time and quit smoking 4 years ago. EKG and troponin were done this a.m. and were unremarkable. Exam Narrative: Exam Narrative: GENERAL: NAD. HEAD AND NECK: Atraumatic, normocephalic CARDIOVASCULAR: RRR. Normal S1, S2. No murmurs. RESPIRATORY: Clear to auscultation B/L. Good air entry B/L. No wheezes or rhonchi. GASTROINTESTINAL: Not distended, not tender to palpation. NEUROLOGY: Alert, awake. Normal speech. Const: Vital Signs, click to edit/add: Vital Signs - 24 hr 06/11/24 10:42 06/11/24 10:45 06/11/24 10:50 Temperature 99.8 F H Pulse Rate 76 77 77 Pulse Rate [Pulse Oximeter] Respiratory Rate 14 18 16 Blood Pressure 107/58 L 109/65 121/67 Blood Pressure [Le ft Arm] Pulse Oximetry 95 96 95 Oxygen Delivery Me thod Nasal Cannula Nasal Cannula Oxygen Flow Rate 4 4 06/11/24 10:55 06/11/24 11:00 06/11/24 11:05 Temperature 99.2 F Pulse Rate 77 78 79 Pulse Rate [Pulse Oximeter] Respiratory Rate 18 14 18 Blood Pressure 113/65 103/49 L 114/74 Blood Pressure [Le ft Arm] Pulse Oximetry 94 95 95 Oxygen Delivery Me thod Nasal Cannula Nasal Cannula Nasal Cannula Oxygen Flow Rate 4 4 4 06/11/24 11:10 06/11/24 11:15 06/11/24 11:23 Temperature 99.1 F 97.6 F Pulse Rate 76 78 68 Pulse Rate [Pulse Oximeter] Respiratory Rate 18 18 16 Blood Pressure 97/54 L 103/76 130/62 Blood Pressure [Le ft Arm] Pulse Oximetry 95 95 91 Oxygen Delivery Me thod Nasal Cannula Nasal Cannula Nasal Cannula Oxygen Flow Rate 3 3 2 06/11/24 11:23 06/11/24 11:30 06/11/24 11:45 Temperature 98.1 F 97.8 F 98.1 F Pulse Rate 68 80 78 Pulse Rate [Pulse Oximeter] Respiratory Rate 16 16 16 Blood Pressure 130/62 115/79 117/64 Blood Pressure [Le ft Arm] Pulse Oximetry 92 92 92 Oxygen Delivery Me thod Nasal Cannula Nasal Cannula Nasal Cannula Oxygen Flow Rate 2 2 2 06/11/24 12:00 06/11/24 12:15 06/11/24 12:30 Temperature 97.9 F 97.8 F 97.8 F Pulse Rate 78 77 80 Pulse Rate [Pulse Oximeter] Respiratory Rate 16 16 16 Blood Pressure 126/62 112/62 119/57 L Blood Pressure [Le ft Arm] Pulse Oximetry 92 92 92 Oxygen Delivery Me thod Nasal Cannula Nasal Cannula Nasal Cannula Oxygen Flow Rate 2 2 2 06/11/24 13:00 06/11/24 14:00 06/11/24 15:00 Temperature 97.8 F 97.9 F 98.1 F Pulse Rate 79 87 84 Pulse Rate [Pulse Oximeter] Respiratory Rate 16 16 16 Blood Pressure 118/60 122/65 126/60 Blood Pressure [Le ft Arm] Pulse Oximetry 92 94 94 Oxygen Delivery Me thod Nasal Cannula Nasal Cannula Nasal Cannula Oxygen Flow Rate 2 2 2 06/11/24 15:00 06/11/24 15:00 06/11/24 15:00 Temperature Pulse Rate Pulse Rate [Pulse Oximeter] Respiratory Rate 16 16 Blood Pressure Blood Pressure [Le ft Arm] Pulse Oximetry 95 95 Oxygen Delivery Me thod Nasal Cannula Oxygen Flow Rate 2 06/11/24 15:00 06/11/24 15:00 06/11/24 16:00 Temperature 98.5 F 98.5 F Pulse Rate 82 85 Pulse Rate [Pulse Oximeter] Respiratory Rate 16 16 Blood Pressure 117/62 Blood Pressure [Le ft Arm] Pulse Oximetry 95 95 Oxygen Delivery Me thod Nasal Cannula Nasal Cannula Oxygen Flow Rate 2 2 06/11/24 17:00 06/11/24 19:00 06/11/24 23:00 Temperature 98.6 F 98.1 F Pulse Rate 88 Pulse Rate [Pulse Oximeter] 89 Respiratory Rate 16 20 Blood Pressure 110/54 L Blood Pressure [Le ft Arm] 117/47 L Pulse Oximetry 93 96 93 Oxygen Delivery Me thod Nasal Cannula Nasal Cannula Oxygen Flow Rate 2 2 06/11/24 23:00 06/11/24 23:00 06/11/24 23:00 Temperature 98.5 F Pulse Rate 87 Pulse Rate [Pulse Oximeter] 88 Respiratory Rate 20 20 Blood Pressure Blood Pressure [Le ft Arm] 130/65 Pulse Oximetry 94 94 Oxygen Delivery Me thod Nasal Cannula Nasal Cannula Oxygen Flow Rate 1 1 06/12/24 03:00 06/12/24 07:00 06/12/24 07:00 Temperature 99.2 F 98.6 F Pulse Rate 97 Pulse Rate [Pulse Oximeter] 92 99 Respiratory Rate 18 18 Blood Pressure Blood Pressure [Le ft Arm] 133/68 154/81 H Pulse Oximetry 94 99 Oxygen Delivery Me thod Nasal Cannula Room Air Oxygen Flow Rate 1 06/12/24 07:00 06/12/24 07:00 06/12/24 07:00 Temperature Pulse Rate Pulse Rate [Pulse Oximeter] 99 Respiratory Rate 18 Blood Pressure Blood Pressure [Le ft Arm] Pulse Oximetry 94 94 Oxygen Delivery Me thod Oxygen Flow Rate Labs Labs: Laboratory Results - last 24 hr 06/12/24 06:05 WBC 9.91 RBC 3.73 L Hgb 10.8 L Hct 35.0 MCV 94 MCH 29 MCHC 31 L Plt Count 281 Sodium 135 Potassium 4.1 Chloride 103 Carbon Dioxide 29 Anion Gap 3 L BUN 13 Creatinine 0.7 Estimated Creat Clear 40.04 Estimated GFR 88 Glucose 123 H Calcium 8.4 Troponin I < 0.01 L
--- NOTE | 2024-06-12 09:14 | NUTR.NU ---
RDn with nutrition screen related to positive skin risk and pressure ulcer. Patient admitted for femur fracture s/p fall, had surgery 06/11/24. Current weight 136 lb 7 oz; height 5ft 4in; BMI 23.4 kg/m2. Weight loss noted within 1 year, however not significant at 9.5%. Some weights in weight history are stated. Current diet is Regular. Intakes since admit have averaged 50%+. Per MD report, pressure ulcer is stage 1. No nutrition interventions at this time with adequate intakes and stable weight. RDN will continue to monitor and follow-up prn.
[2024-06-12] MEDS: BUDESONIDE 0.5 MG/2ML NEB NEB ×2 (10:05→20:31)
[2024-06-12] MEDS: OMEPRAZOLE 20 MG CAPSULE DR PO (10:05)
[2024-06-12] MEDS: TRAMADOL HCL 50 MG TABLET 100 MG PO ×2 (10:50→20:31)
[2024-06-12] MEDS: ACETAMINOPHEN 500 MG TABLET 1000 MG PO ×3 (10:50→23:04)
--- NOTE | 2024-06-12 11:41 | PC.SOCIAL ---
Addendum entered and electronically signed by LIZETH Acuña 06/12/24 15:50: Discharge planning: Pre-admission screening completed and sent to Shameka at [facility] via secure email. [id number]. Social work to follow-up as needed. Addendum entered and electronically signed by LIZETH Acuña 06/12/24 15:25: Discharge planning: Pt has accepted the room and her will transport her tomorrow at 1pm. Pt needs to be to [facility] by 2pm. Social work to follow-up as needed. Addendum entered and electronically signed by LIZETH Acuña 06/12/24 14:57: Discharge planning: Pt is now a modified assist this afternoon after another session with PT. retail worker sent over pt's updated physical therapy note from this afternoon to Shameka at [facility] for nursing to review. Nursing reviewed pt's updated note and can take the pt tomorrow. retail worker will update the pt and provider on duty. Social work to follow-up as needed. Addendum entered and electronically signed by LIZETH Acuña 06/12/24 14:03: Discharge planning: [facility] cannot meet pt's needs if she is a two person assist. Stated they could reassess if therapies state she is a one person assist. retail worker will talk to pt about other facilities to send her referral to. Social work to follow-up as needed. Original Note: Discharge planning: retail worker met with pt today to discuss discharge planning. Pt is currently a two person assist and will need short-term rehab at discharge. Pt would like to stay in [place] and go to [facility]. retail worker reached out to Shameka at [facility] whom shared that they have short-term rehab beds available this week and will review the referral. Pt should be ready for discharge tomorrow. retail worker secure emailed the referral to Shameka at [facility]. Social work to follow-up as needed.
[2024-06-12] MEDS: SENNOSIDES/DOCUSATE TABLET 1 TAB PO (13:21)
--- NOTE | 2024-06-12 14:40 | PC.NURSE ---
[id number]: Pt alert, oriented and vitally stable. Tele showed NSR. Pt up to chair during shift via 2a, tolerated well. By the end of shift, pt was 1a while completing this process, tolerating well. Pt de sats when standing at times, though recovers within a few minutes. Pt sating 90-95 on room air. Pt does become SOB upon exacerbation. Pt educated on importance of proper hip alignment, abductor pillow in place when in bed. Pain rated 3/10 when in bed, though 10/10 with movement. Prn oxy, tramadol and tylenol given, pt stated improvement. Ice pack to op site as tolerated, dressing is C/D/I. Pt nails cath patent, draining appropriately. Pt up in chair, appears to be comfortable, call light within reach.?
--- NOTE | 2024-06-12 19:53 | PC.NURSE ---
Shift Note: Arias pulled at 1530, pt has since voided on the toilet. VS WNL and LS clear/and diminished in bases bilaterally. Afebrile. Surgical dressing C,D,&I with active ice and wedge in place. Pt moving with assist x1-2 with walker and GB. PRN oxy given for 8/10 pain. Pt now rates pain 2/10. Poor appetite, pt ate about 50% of a peanut butter and jelly sandwich and a pudding. Encouraged increased fluid intake. Offered Ensure supplement and pt declined.
[2024-06-12] MEDS: polyethylene glycoL 3350 17 GM PACK PO (20:31)
[2024-06-13] MEDS: OXYCODONE 5 MG TABLET PO ×2 (03:09→08:34)
[2024-06-13 03:10] VITALS: BP 136/66; PULSE 89; RESP 20; TEMP 36.6; O2SAT 92
[2024-06-13] MEDS: ACETAMINOPHEN 500 MG TABLET 1000 MG PO ×2 (05:24→11:02)
[2024-06-13] MEDS: IPRAT-ALBUT 0.5-2.5 MG/3 ML NEB 1 NEB IH (06:28)
[2024-06-13] MEDS: OMEPRAZOLE 20 MG CAPSULE DR PO (06:28)
--- NOTE | 2024-06-13 06:53 | PC.NURSE ---
19-: Pleasant and cooperative. A x 1 w/ gb and walker, tolerated fair. Pt becomes SOB with ambulation, requiring breaks to catch breath, no O2 desaturation noted with exertion. Pt placed on 1L O2 via NC while asleep, O2 on RA while asleep was 86-88%. Pts room smells of cigarette smoke, poem writer asked pt if she smoked or if someone in her home smokes - she declined. Pt stated her jacket is likely the reason for the smell as she frequents [employer]. Pt declined scheduled Duoneb x 1. She was reluctant to do Busimide Neb at HS, with encouragement and education regarding O2 sats and O2 needs - pt was willing to do. No BM charted since admin to floor, Miralax given. Active ice to right hip. Bruising noted to lateral and medial right thigh. Hgb Stable since admin. Prn oxy & tramadol given for pain, 2-810, scheduled tylenol continued. Tele - NSR.
[2024-06-13 07:12] LABS: Hematocrit 30.8 % (33.0-51.0); Hemoglobin* 9.6 gm/dL (12.0-16.0); Mean Corpuscular HGB Conc 31 gm/dL (32-36); Mean Corpuscular Hemoglobin 29 pg (26-34); Mean Corpuscular Volume 94 fL (80-100); Platelet Count* 268 K/uL (140-440); Red Blood Count 3.28 m/uL (4.00-5.20); White Blood Count* 10.65 K/uL (4.50-11.00)
[2024-06-13 07:13] LABS: Slide Review Reflex No
[2024-06-13 07:15] VITALS: O2SAT 92
[2024-06-13 07:25] LABS: Chloride* 103 mmol/L (96-114); Sodium* 136 mmol/L (135-149)
[2024-06-13 07:26] LABS: Potassium* 4.4 mmol/L (3.6-5.1)
[2024-06-13 07:28] LABS: Anion Gap 2 mEq/L (7-15); Carbon Dioxide* 31 mmol/L (20-32); Creatinine* 0.7 mg/dL (0.5-1.5); Est. Creatinine Clearance* 40.04; Estimated Glomerular Filt Rate 88 ml/min
[2024-06-13 07:29] VITALS: PULSE 86
[2024-06-13 07:29] LABS: Blood Urea Nitrogen* 12 mg/dL (7-30); Calcium* 8.5 mg/dL (8.4-10.6); Glucose* 106 mg/dL (60-115)
--- NOTE | 2024-06-13 08:18 | PM.IMPN1 ---
Progress Note: A&P Assessment and plan (1) Hip fracture: Problem details: s/p right bipolar hemiarthroplasty. DOS: 06/11/24; Dr. Florentino. Status: Acute (2) COPD (chronic obstructive pulmonary disease): Problem details: -Patient shows shortness of breath on exertion, she mentioned that it is a chronic problem because she has COPD. -She has been smoking for long time and quit smoking 4 years ago. - EKG and troponin were done this a.m. and were unremarkable. -patient does not follow up regularly with PCP, she is not currently on any inhalers. We recommend following up with her PCP to do more workup as an outpatient. -ordered budesonide + Duonebs nebulizers. Status: Acute (3) Frequent falls: Problem details: -family states that patient has been more confused at night and has been falling down, patient is describing a mechanical fall and that she just tripped by the treatment. -patient needs full evaluation by Physical therapy and Occupational therapy. Status: Acute (4) Atrial flutter with rapid ventricular response: Problem details: -Suspected by ED, my EKG interpretation is normal sinus rhythm, heart rate in the 90s her not in the 140s, I think EKG machine has been reading T-waves as extra QRS beats. Prolonged QTC interval. -echo was done today and it showed Normal sinus. 1. Normal LV size, normal global systolic function with an estimated EF of 65 - 70%. 2. Right ventricular cavity size is normal, global systolic RV function is normal. 3. Normal left atrium size. 4. No significant valve disease detected. -patient will need to follow up with PCP as an outpatient to follow up if patient is having any abnormal rhythm. Status: Suspected (5) Leukocytosis: Problem details: -resolved -could be reactive to trauma -has been trending down -will monitor Status: Resolved Subjective Interval history: Patient was seen and examined at bedside. Patient shows shortness of breath on exertion, she mentioned that it is a chronic problem because she has COPD. She has been smoking for long time and quit smoking 4 years ago. EKG and troponin were done this a.m. and were unremarkable. Exam Const: Vital Signs, click to edit/add: Vital Signs - 24 hr 06/12/24 11:00 06/12/24 15:00 06/12/24 15:00 Temperature 98.5 F Pulse Rate Pulse Rate [Pulse Oximeter] 90 Respiratory Rate 16 18 Blood Pressure [Le ft Arm] 127/57 L Pulse Oximetry 91 94 94 Oxygen Delivery Me thod Room Air Room Air Oxygen Flow Rate 06/12/24 15:00 06/12/24 15:00 06/12/24 15:00 Temperature 97.9 F Pulse Rate 89 Pulse Rate [Pulse Oximeter] 99 99 Respiratory Rate 18 18 Blood Pressure [Le ft Arm] 99/81 Pulse Oximetry 94 Oxygen Delivery Me thod Room Air Oxygen Flow Rate 06/12/24 19:00 06/12/24 23:00 06/12/24 23:00 Temperature 97.6 F Pulse Rate Pulse Rate [Pulse Oximeter] 93 Respiratory Rate 18 20 Blood Pressure [Le ft Arm] 123/58 L Pulse Oximetry 95 93 Oxygen Delivery Me thod Nasal Cannula Oxygen Flow Rate 0.5 06/12/24 23:00 06/12/24 23:00 06/12/24 23:23 Temperature 98.1 F Pulse Rate 79 Pulse Rate [Pulse Oximeter] 86 Respiratory Rate 20 20 Blood Pressure [Le ft Arm] 127/59 L Pulse Oximetry 93 93 Oxygen Delivery Me thod Nasal Cannula Nasal Cannula Oxygen Flow Rate 1 1 06/12/24 23:30 06/13/24 03:10 06/13/24 07:15 Temperature 98 F Pulse Rate Pulse Rate [Pulse Oximeter] 89 Respiratory Rate 20 20 Blood Pressure [Le ft Arm] 136/66 Pulse Oximetry 86 L 92 92 Oxygen Delivery Me thod Room Air Nasal Cannula Oxygen Flow Rate 1 06/13/24 07:29 Temperature Pulse Rate 86 Pulse Rate [Pulse Oximeter] Respiratory Rate Blood Pressure [Le ft Arm] Pulse Oximetry Oxygen Delivery Me thod Oxygen Flow Rate Labs Labs: Laboratory Results - last 24 hr 06/13/24 06:19 WBC 10.65 RBC 3.28 L Hgb 9.6 L Hct 30.8 L MCV 94 MCH 29 MCHC 31 L Plt Count 268 Sodium 136 Potassium 4.4 Chloride 103 Carbon Dioxide 31 Anion Gap 2 L BUN 12 Creatinine 0.7 Estimated Creat Clear 40.04 Estimated GFR 88 Glucose 106 Calcium 8.5
[2024-06-13 08:19] VITALS: BP 113/56; PULSE 96; RESP 18; TEMP 36.6; O2SAT 90
[2024-06-13] MEDS: BUDESONIDE 0.5 MG/2ML NEB NEB (08:34)
[2024-06-13] MEDS: ASPIRIN 81 MG TABLET EC PO (08:35)
[2024-06-13] MEDS: SODIUM CHLORIDE 0.9 % (FLUSH) 10 ML SYRINGE 5 ML IVF ×2 (08:45)
[2024-06-13 09:48] LABS: SARS PCR* Negative SARS-CoV-2 (Negative)
--- NOTE | 2024-06-13 10:31 | PC.SOCIAL ---
Discharge planning: Met with pt today whom has no concerns about discharging to [facility] and is looking forward to her recovery. Social work to follow-up as needed.
[2024-06-13 11:00] VITALS: BP 126/55; PULSE 88; RESP 20; TEMP 36.7; O2SAT 94
--- NOTE | 2024-06-13 11:01 | PM.DS1 ---
DS: Providers Provider Date Seen: 06/13/24 Date of admission: 06/10/24 01:10 Primary care physician: Not a Local Provider Admitting Clinician: Ko Redmond MD Consults: 06/11/24 11:42 Consult to Occupational Therapy [CONS] Routine Comment: Status post right hip hemiarthroplasty Reason(s) for OT Consult:: Evaluate and Treat Any Restrictions?:: See Comment Comment: evaluate and treat Consult to Physical Therapy [CONS] Routine Comment: Status post right hip hemiarthroplasty Reason(s) for PT Consult:: Evaluate and Treat Any Restrictions?:: Wt Bearing as Tolerated Consult to Installment Dealer [CONS] Routine Comment: Reason for Consult:: Discharge Planning Needs Attending Physician on discharge: Lena Pierce MD DS: Diagnosis Discharge Diagnosis (1) Hip fracture: Status: Acute Problem details: s/p right bipolar hemiarthroplasty. DOS: 06/11/24; Dr. Florentino. (2) COPD (chronic obstructive pulmonary disease): Status: Acute Problem details: -Patient shows shortness of breath on exertion, she mentioned that it is a chronic problem because she has COPD. -She has been smoking for long time and quit smoking 4 years ago. - EKG and troponin were done this a.m. and were unremarkable. -patient does not follow up regularly with PCP, she is not currently on any inhalers. We recommend following up with her PCP to do more workup as an outpatient. -ordered budesonide + Duonebs nebulizers. (3) Frequent falls: Status: Acute Problem details: -family states that patient has been more confused at night and has been falling down, patient is describing a mechanical fall and that she just tripped by the treatment. -patient needs full evaluation by Physical therapy and Occupational therapy. (4) Atrial flutter with rapid ventricular response: Status: Suspected Problem details: -Suspected by ED, my EKG interpretation is normal sinus rhythm, heart rate in the 90s her not in the 140s, I think EKG machine has been reading T-waves as extra QRS beats. Prolonged QTC interval. -echo was done today and it showed Normal sinus. 1. Normal LV size, normal global systolic function with an estimated EF of 65 - 70%. 2. Right ventricular cavity size is normal, global systolic RV function is normal. 3. Normal left atrium size. 4. No significant valve disease detected. -patient will need to follow up with PCP as an outpatient to follow up if patient is having any abnormal rhythm. (5) Leukocytosis: Status: Resolved Problem details: -resolved -could be reactive to trauma -has been trending down -will monitor DS: Summary Hospital Course Hospital Course: Vidya Lemus is a 79 year old female who does not follow up regularly w/ medical providers, reportedly has carlton doing worse over the last several months with more frequent falls who presents after a fall. At the ED, an x-ray of the right hip showed an impacted femoral neck fracture. The ER discussed the case with orthopedic surgery and pt underwent right bipolar hemiarthroplasty on 06/11/24. Aflutter was suspected by ED, but my EKG interpretation is normal sinus rhythm, heart rate in the 90s. echo was done and is unremarkable. patient will need to follow up with PCP as an outpatient to follow up if patient is having any abnormal rhythm. In addition, pt states that she has dyspnea on exertion at baseline, EKG and trops were negative. Pt has been a smoker for a long time, quit 4 yrs ago, and we suspect COPD. patient does not follow up regularly with PCP, she is not currently on any inhalers. We recommend following up with her PCP to do more workup as an outpatient. Pt needs to f/up w/ ortho too. Status at Discharge Functional status at discharge: uses cane/walker Overall status at discharge: patient is progressing back to baseline Time Spent with Patient Time attestation: Total time spent providing and/or coordinating discharge services: 50 Exam Narrative: Exam Narrative: GENERAL: NAD. HEAD AND NECK: Atraumatic, normocephalic CARDIOVASCULAR: RRR. Normal S1, S2. No murmurs. RESPIRATORY: Clear to auscultation B/L. Good air entry B/L. No wheezes or rhonchi. GASTROINTESTINAL: Not distended, not tender to palpation. NEUROLOGY: Alert, awake. Normal speech. Const: Vital Signs, click to edit/add: Vital Signs - 24 hr 06/12/24 15:00 06/12/24 15:00 06/12/24 15:00 Temperature 97.9 F Pulse Rate Pulse Rate [Pulse Oximeter] 99 Respiratory Rate 18 18 Blood Pressure [Le ft Arm] 99/81 Pulse Oximetry 94 94 94 Oxygen Delivery Me thod Room Air Room Air Oxygen Flow Rate 06/12/24 15:00 06/12/24 15:00 06/12/24 19:00 Temperature 97.6 F Pulse Rate 89 Pulse Rate [Pulse Oximeter] 99 93 Respiratory Rate 18 18 Blood Pressure [Le ft Arm] 123/58 L Pulse Oximetry 95 Oxygen Delivery Me thod Nasal Cannula Oxygen Flow Rate 0.5 06/12/24 23:00 06/12/24 23:00 06/12/24 23:00 Temperature Pulse Rate Pulse Rate [Pulse Oximeter] Respiratory Rate 20 20 Blood Pressure [Le ft Arm] Pulse Oximetry 93 93 Oxygen Delivery Me thod Nasal Cannula Oxygen Flow Rate 1 06/12/24 23:00 06/12/24 23:23 06/12/24 23:30 Temperature 98.1 F Pulse Rate 79 Pulse Rate [Pulse Oximeter] 86 Respiratory Rate 20 20 Blood Pressure [Le ft Arm] 127/59 L Pulse Oximetry 93 86 L Oxygen Delivery Me thod Nasal Cannula Room Air Oxygen Flow Rate 1 06/13/24 03:10 06/13/24 07:15 06/13/24 07:29 Temperature 98 F Pulse Rate 86 Pulse Rate [Pulse Oximeter] 89 Respiratory Rate 20 Blood Pressure [Le ft Arm] 136/66 Pulse Oximetry 92 92 Oxygen Delivery Me thod Nasal Cannula Oxygen Flow Rate 1 06/13/24 08:19 06/13/24 08:19 Temperature 97.8 F Pulse Rate Pulse Rate [Pulse Oximeter] 96 Respiratory Rate 18 Blood Pressure [Le ft Arm] 113/56 L Pulse Oximetry 90 90 Oxygen Delivery Me thod Room Air Room Air Oxygen Flow Rate DS: Data Data Completed and Pending Labs on day of discharge: Labs from last 24 hours 06/13/24 06/13/24 08:56 06:19 WBC 10.65 RBC 3.28 L Hgb 9.6 L Hct 30.8 L MCV 94 MCH 29 MCHC 31 L Plt Count 268 Sodium 136 Potassium 4.4 Chloride 103 Carbon Dioxide 31 Anion Gap 2 L BUN 12 Creatinine 0.7 Estimated Creat Clear 40.04 Estimated GFR 88 Glucose 106 Calcium 8.5 SARS-CoV-2 (PCR) Negative SARS-CoV-2 Discharge Plan Discharge Disposition: [facility] [place] Date of Admission: 06/10/24 01:10 Attending Provider on Discharge: Lena Pierce Primary Care Provider: Provider,Not a Local Condition: Stable Discharge Medications: New aspirin 81 mg Tablet,Delayed Release (Dr/Ec) 81 mg PO BID 35 Days Qty: 70 0RF acetaminophen 500 mg Tablet 500 - 1,000 mg PO Q4-6H PRNQty: 100 0RF oxycodone 5 mg Tablet 2.5 - 5 mg PO Q4-6H MDD 6 tabs per day PRN (Reason: Pain) Qty: 42 0RF Rx Instructions: Minimize use. Wean off and discontinue as soon as possible. Continued multivitamin Tablet 1 tab PO QAM tolterodine [Detrol] 2 mg tablet 2 mg PO BID Qty: 60 2RF Discharge Orders: Discharge Order (Routine); Ordered 06/13/24 Ordered By: Kelsy Madrigal Additional Instructions: -follow-up with your primary care physician in 1-2 weeks -Discuss with PCP, Pt was not on any inhalers for COPD. We recommend following up with her PCP to do more workup as an outpatient and confirm her COPD status and if needed start her on inhalers. -atrial flutter was suspected by ED, my EKG interpretation is normal sinus rhythm, heart rate in the 90s her not in the 140s, I think EKG machine has been reading T-waves as extra QRS beats. Echo was done and it was unremarkable. You need to follow up with PCP as an outpatient to follow up for any abnormal rhythm. -follow-up with orthopedic doctor as below. Activity Level: Activity as Tolerated, Weight Bearing as Tolerated and Use Walker Activity Detail: - Complete 23 hour perioperative antibiotics. - PT/OT consults for education and assistance. Posterior Hip Precautions. - Weight bear as tolerated with a walker for assistance. - Prescribed analgesics as needed. Patient is content with current narcotic medications. Minimize narcotic pain medication use; wean off and discontinue as soon as possible. - DVT prophylaxis: aspirin 81 mg BID x 35 days. Also, frequent ambulation and ankle pumps when sedentary. - Return to clinic in 2 weeks with either myself or Dr. Larry Florentino for wound check and Orthopedic follow-up appointment. - Nursing staff at [facility] will remove Mepilex dressing in 1 week or sooner if becomes saturated. Patient may shower. Dressing is waterproof. - Phone Orthopedics with any questions or concerns. [phone] Discharge Diet: Regular Follow Up Appointments: Gerry Schmidt MD [Staff Physician] - Provider,Not a Local [Primary Care Provider] - Forms: [employer] Info Instructions Admit to: SNF Discharge Potential: Good Length of Stay: <30 days Can use facility standing orders?: Yes Code Status: Full Code Rehab Potential: Fair Therapy: Physical Therapy and Occupational Therapy Therapy Orders: Evaluate and Treat Oxygen: No Signature: Lena Pierce
[2024-06-13] MEDS: SENNOSIDES/DOCUSATE TABLET 1 TAB PO (11:02)
--- NOTE | 2024-06-13 11:10 | PC.NURSE ---
No BM charted, patient states she had one 2 days ago on 06/11. Bowel sounds active and passing gas, abdomen soft and not distended, denies pain/discomfort with palpation. Has received medications for stool, see MAR.
--- NOTE | 2024-06-13 13:14 | PC.NURSE ---
Addendum entered by Marguerite Hu RN 06/13/24 13:29: Updated RT about o2 need while sleeping, recommendation to not send patient with order to SNF. Original Note: Discharge: Nurse to nurse given this morning. Patient pleasant and cooperative. Up with one assist, walker and gait belt. Vitals stable and WNL. Pain managed with PRN/scheduled medication, see MAR. Pain at time of discharge 07/07. Informed nursing staff at [facility] of posterior hip precautions, patient unable to bend more than 90 degrees at hip and should have abductor pillow when resting to avoid crossing legs. IV x2 removed with catheter intact. Dressing dry and intact. Patient d/c @ 1259.
== END 2024-06-13 12:59 | DRG 522 ==
LOC: ED 06-10 00:36 → MEDSURG 06-10 00:47
PROVIDERS: Internal Medicine; Orthopaedic Surgery; Student in an Organized Health Care Education/Training Program; Admitting Provider Internal Medicine; Emergency Provider Family Medicine; Visit Provider Internal Medicine
DX: S72.001A Fracture of unspecified part of neck of right femur, initial encounter for closed fracture (principal); I48.92 Unspecified atrial flutter; J44.1 Chronic obstructive pulmonary disease with (acute) exacerbation; W01.0XXA Fall on same level from slipping, tripping and stumbling without subsequent striking against object, initial encounter; Z91.81 History of falling; Y92.009 Unspecified place in unspecified non-institutional (private) residence as the place of occurrence of the external cause; D72.829 Elevated white blood cell count, unspecified; Z87.891 Personal history of nicotine dependence
CPT/HCPCS: 01210; 36415; 51701; 71045; 73501; 73502; 80048; 80076; 81001; 83036; 83735; 83880; 84443; 84484; 85025; 85027; 87086; 87635; 93005; 93306; 94761; 97110; 97116; 97162; 97165; 97530; 97535; 99140; 99281; 99284; 99285; 99291; A9270; C1776; J0690; J1100; J1171; J1644; J2270; J2405; J2704; J3010; J3475; J3490; J7030; J7120; J7626

== ENCOUNTER 2024-09-14 15:49 | Emergency (ER) | payer MEDICARE, SELFPAY ==
--- OUTSIDE RECORDS SUMMARY | 2024-09-14 15:55 | XMS_ITS | Clinical Summary ---
Author Organization [facility] Address [address] [place] [id number] Care Team Providers Care Mercantile Reporter Name Role Phone Pcp, No Primary Care Provider Unavailabl e Allergies No known active allergies Medications multivitamin (MVI) tablet Take 1 tablet by mouth once daily. 0 11/01/2014 Active ferrous sulfate 325 mg delayed release tablet Take 1 tablet by mouth once daily. 0 02/19/2015 Active Omeprazole 20 mg tabletIndication s:Gastritis Take 1 tablet by mouth once daily. 30 tablet 4 06/10/2015 Active Active Problems No known active problems Encounters Date Type Department Care Team Description 06/16/2024 Lab Requisition [facility] [phone] Fiona Peralta NP from Last 3 Months Immunizations Immunization Administration Dates Next Due Tdap 03/06/2011 Family History Medical History Relation Name Comments Unknown Father Stroke Mother stroke at age 9 0, alive Relation Name Status Comments Father Other Mother (Age 92) Social History Tobacco Use Types Packs/Day Years Used Date Smoking Tobacco: Every Day Cigarettes Smokeless Tobacco: Never Tobacco Cessation:Ready to Q uit: No; Counseling Given: Yes Comments:1/2 PPD cutting down Alcohol Use Standard Drinks/Week Comments No 0 (1 standard drink = 0.6 oz pur e alcohol) Comments No Sex and Gender Information Value Date Recorded Sex Assigned at Not on file Legal Sex Female 5:24 AM SHOE TURNER Gender Identity Not on file Sexual Orientation Not on file Occupation Industry Job Start Date Job End Date retired Not on file Not on file Not on file Obstetrics History Last Filed Vital Signs Vital Sign Reading Time Taken Comments Blood Pressure 121/61 06/10/2015 2:39 PM SHOE TURNER Pulse 78 06/10/2015 2:39 PM SHOE TURNER Temperature 36.7 C (98.1 F) 03/09/2015 1:45 PM CDT Respiratory Rate 18 01/08/2011 10:17 AM CDT Oxygen Saturation 99% 06/10/2015 2:39 PM SHOE TURNER Inhaled Oxygen Concentration - - Weight 61.9 kg (136 lb 6.4 oz) 06/10/2015 2:39 P M SHOE TURNER Height 160 cm (5' 2.99) 03/09/2015 1:45 PM CDT Body Mass Index 24.17 03/09/2015 1:45 PM CDT Plan of Treatment Health Maintenance Due Date Last Done Comments Depression screening for age 12+ 1958 BMI (ht and wt on same day) for age 18+ 1964 Hepatitis C screening for age 18-79 1964 Pneumococcal series for age 50+ (1 of 1 - PCV) 996 Zoster (shingles) series for age 50+ (1 of 2) 03/20/19 96 DEXA/DXA scan for age 65+ 2011 Tetanus booster 03/06/2021 03/06/2011 RSV vaccine for adults or pr egnancy (1 - 1-dose 75+ series) 2021 COVID-19 vaccine series (2023- season) 4 Influenza Vaccine (#1) 2024 Tdap Completed 03/06/2011 Procedures Procedure Name Priority Date/Time Associated Diagnosis Comments CBC W PLT NO DIFF Routine 06/20/2024 7:1 0 AM SHOE TURNER Encounter for other specified surgical aftercare from Last 3 Months Results * (ABNORMAL) CBC W PLT NO DIFF (06/20/2024 7:10 AM SHOE TURNER) WHITE BLOOD COUNT 8.6 4.5 - 11.0 thou/cu mm 06/20/2024 8:20 AM SHOE TURNER [facility] RED BLOOD COUNT 3.50(L) 4.00 - 5.20 mil/cu mm 06/20/2024 8:20 AM SHOE TURNER [facility] HEMOGLOBIN 10.2(L) 12.0 - 16.0 g/dL 06/20/2024 8:20 AM [facility] HEMATOCRIT 33.3 33.0 - 51.0 % 06/20/2024 8:20 AM [facility] MCV 95 80 - 100 fL 06/20/2024 8:20 AM [facility] MCH 29.1 26.0 - 34.0 pg 06/20/2024 8:20 AM [facility] MCHC 30.6(L) 32.0 - 36.0 g/dL 06/20/2024 8:20 AM [facility] RDW 14.6 11.5 - 15.5 % 06/20/2024 8:20 AM [facility] PLATELET COUNT 726(H) 140 - 440 thou/cu mm 06/20/2024 8:20 AM [facility] MPV 8.6 6.5 - 11.0 fL 06/20/2024 8:20 AM [facility] Blood BLOOD SPECIMEN / Unknown Venipuncture / Unknown 06/20/2024 7:10 AM SHOE TURNER 06/20/2024 8:07 AM SHOE TURNER us Fiona Peralta NP HEMATOLOGY Final Resul t [facility] [address] [place] [address] from Last 3 Months Insurance MEDICARE [place] ONLY Care Teams Mercantile Reporter Relationship Specialty Start Date End Date Pcp, No . PCP - General 07/06/24
[2024-09-14 15:59] VITALS: BP 129/68; PULSE 83; RESP 18; TEMP 36.6; O2SAT 98; BMI 22.3
--- NOTE | 2024-09-14 16:06 | CRLHL7_ITS ---
For Patients: As a result of the Century Cures Act, medical imaging exams and procedure reports are released immediately into your electronic medical record. You may view this report before your referring provider. If you have questions, please contact your health care provider. Indication: Trauma. Technique: Right wrist, 3 views. Comparison: None. Findings/Impression: Bones: Decreased osseous mineralization. Acute displaced distal radius fracture with dorsal angulation. Associated acute displaced ulnar styloid base fracture. Joint spaces: Associated joint effusion. Soft tissues: Associated soft tissue swelling. Dictated by Willie Campa MD @ 09/14/2024 4:47:43 PM (Electronically Signed)
--- NOTE | 2024-09-14 17:22 | ED.UPPEXIN ---
HPI - Extremity Injury (Upper) General Date Seen: 09/14/24 Chief Complaint: Extremity Pain/Injury, Upper Stated Complaint: fell, injured wrist Time Seen by Provider: 09/14/24 17:14 Source: patient and family Mode of arrival: ambulatory Limitations: no limitations History of Present Illness HPI narrative: Patient is a sweet 79-year-old female who fell against a chair and injured her right wrist today, she is right-hand dominant, she has no other injury to her shoulder, elbow, head her neck, there is no loss of conscious associated with this she is brought in by her daughter, for evaluation of this issue, no numbness and tingling noted. 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 08/01/24 Walker- 4 Wheels #1 ea 08/01/24 Allergies Allergy/AdvReac Type Severity Reaction Status Date / Time No Known Drug Allergies Allergy Verified 09/14/24 16:05 Review of Systems Status of ROS: Reports: 10 or more systems reviewed and unremarkable except as noted in History and below [facility] Medical History COPD (chronic obstructive pulmonary disease) ?J44.9 - Chronic obstructive pulmonary disease, unspecified (ICD-10) Incontinence in female ?R32 - Unspecified urinary incontinence (ICD-10) History of kidney stones (05/05/16) ?Z87.442 - Personal history of urinary calculi (ICD-10) Urticaria of unknown origin ?L50.9 - Urticaria, unspecified (ICD-10) Surgical History 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) ?Z96.641 - Presence of right artificial hip joint (ICD-10) History of tonsillectomy ?Z90.89 - Acquired absence of other organs (ICD-10) History of vaginal delivery History of tubal ligation (1970) ?Z98.51 - Tubal ligation status (ICD-10) History of shoulder surgery ?Z98.890 - Other specified postprocedural states (ICD-10) History of phacoemulsification of cataract of both eyes with intraocular lens implantation (2014) ?Z98.41 - Cataract extraction status, right eye (ICD-10) ?Z98.42 - Cataract extraction status, left eye (ICD-10) ?Z96.1 - Presence of intraocular lens (ICD-10) Family History Mother Stroke, Onset Age: 90 Daughter Lung cancer Social History Narrative: , five kids, retired from [employer], nonsmoker, no EtOH What is your current living situation?: I presently have a place to live Problems where you live: no known problems Problems where you live details: N/A In the past 12 months, utilities in danger of being shut off: no In past 12 months, lack of transportation kept you from medical appts, meetings, work, or getting things needed for daily living: no In the past 12 mos, have been you worried that your food would run out before you had money to buy more?: never true In the past 12 mos, the food you bought just didn't last and you didn't have money to buy more?: never true Smoking Status: Former smoker How often do you have a drink containing alcohol: never AUDIT-C Alcohol total score: 0 Non-prescribed substance use: denies use How often does anyone, including family, friends and others, physically hurt you: never How often does anyone, including family, friends and others, insult or talk down to you: never How often does anyone, including family, friends and others, threaten you with harm: never How often does anyone, including family, friends and others, scream or curse at you: never service: No Exam Narrative: Exam Narrative: Patient is seen and assessed in the hallway, due to the dizziness, her neck is supple full range of motion there is no tenderness to palpation right shoulder has full range of motion no tenderness noted over clavicle, elbows nontender she has deformity of a dinner fork type of her right wrist, she is able to move her fingers she has normal cap refill of her fingers, normal sensation, and 1st finger thumb opposition is normal, X-ray is done, this shows a displaced slightly angulated and impacted right distal radial and also ulnar fracture. I discussed with him ways to manage with this I would saw suggest that we try to at least straighten it out a little bit more, using a hematoma block to start with and she was comfortable with this. Const: Vital Signs, click to edit/add: Vital Signs - 24 hr 09/14/24 15:59 Temperature 97.8 F Pulse Rate [Right Pulse Oximeter] 83 Respiratory Rate 18 Blood Pressure [Ri ght Upper Arm] 129/68 Pulse Oximetry 98 Oxygen Delivery Me thod Room Air Course Course ED Course: Using a hematoma block, with 1% preservative-free lidocaine times 10 mL. I was able to reduce the fracture, post fracture films show acceptable alignment, no significant deviation. She is put in anterior posterior splint, with slight dorsiflexion of her hand. Her cap refill, sensation, were checked post splinting, and this was all stable. This was acceptable closed reduction. We got her appointment with Orthopedics for follow-up. Sling and use of Tylenol for discomfort we went over warning signs when she should re-presented. Vital Signs Vital signs: Initial Vital Signs Temperature 97.8 F 09/14/24 15:59 Temperature Source Temporal Artery Scan 09/14/24 15:59 Pulse Rate 83 09/14/24 15:59 Pulse Rhythm Regular 09/14/24 15:59 Pulse Strength 3+ Normal 09/14/24 15:59 Respiratory Rate 18 09/14/24 15:59 Blood Pressure 129/68 09/14/24 15:59 Blood Pressure Mean 88 09/14/24 15:59 Blood Pressure Position Sitting 09/14/24 15:59 Pulse Oximetry 98 09/14/24 15:59 Oxygen Delivery Method Room Air 09/14/24 15:59 Vital Signs Temperature 97.8 F 09/14/24 15:59 Pulse Rate 83 09/14/24 15:59 Respiratory Rate 18 09/14/24 15:59 Blood Pressure 129/68 09/14/24 15:59 Pulse Oximetry 98 09/14/24 15:59 Oxygen Delivery Method Room Air 09/14/24 15:59 Temperature 97.8 F 09/14/24 15:59 Pulse Rate 83 09/14/24 15:59 Respiratory Rate 18 09/14/24 15:59 Blood Pressure 129/68 09/14/24 15:59 Pulse Oximetry 98 09/14/24 15:59 Oxygen Delivery Method Room Air 09/14/24 15:59 Medications Administered Medications: Discontinued Medications Generic Name Dose Route Start Last Admin Trade Name Freq PRN Reason Stop Dose Admin Acetaminophen 1,000 mg 09/14/24 17:25 09/14/24 17:32 Acetaminophen 500 Mg Tablet PO 09/14/24 17:26 1,000 mg ONCE ONE Administration Lidocaine HCl 30 ml 09/14/24 17:43 09/14/24 18:03 Lidocaine 1% Mdv INJECTION 30 ml ONCE PRN Administration MDM - Extremity Injury (Upper) MDM Narrative Medical decision making narrative: Patient has distal ulnar and radial fracture, cholecystitis. I discussed treatment options for her, and she would like to go forward with a hematoma block. Differential Diagnosis Differential diagnosis: Likely fracture of wrist Medical Records Attestation: I reviewed the patient's medical records. Imaging Data Forearm: Attestation: I have reviewed the pertinent imaging results. My impression: Distal radial and ulnar fracture, with dorsal deviation, close reduction successful Radiologist's impression: atient: Vidya Lemus MR#: [id number] : 1945 Acct:[id number] Loc: ED Service Date: 09/14/[address]: Ordering Physician: STEVE LOERA Date of Service: 09/14/24 Procedure(s): XR wrist RT min 3V Accession Number(s): [id number] cc: PROVIDER,TEMP; Provider,Not a Local~ For Patients: As a result of the Cures Act, medical imaging exams and procedure reports are released immediately into your electronic medical record. You may view this report before your referring provider. If you have questions, please contact your health care provider. Indication: Trauma. Technique: Right wrist, 3 views. Comparison: None. Findings/Impression: Bones: Decreased osseous mineralization. Acute displaced distal radius fracture with dorsal angulation. Associated acute displaced ulnar styloid base fracture. Joint spaces: Associated joint effusion. Soft tissues: Associated soft tissue swelling. Dictated by Willie Campa MD @ 09/14/2024 4:47:43 PM (Electronically Signed)[place] [address] Diagnostic Imaging Report Patient: Vidya Lemus MR#: [id number] : 1945 Acct:[id number] Loc: ED Service Date: 09/14/[address]: Ordering Physician: Eduar Orona M.D. Date of Service: 09/14/24 Procedure(s): XR wrist RT 2V Accession Number(s): [id number] cc: Provider,Not a Local; Eduar Orona M.D.~ For Patients: As a result of the Cures Act, medical imaging exams and procedure reports are released immediately into your electronic medical record. You may view this report before your referring provider. If you have questions, please contact your health care provider. INDICATION: Wrist fracture status post reduction TECHNIQUE: Wrist radiograph 2 views right COMPARISON: 09/14/2024 FINDINGS: Bone: The comminuted fracture of the distal radius has been reduced to near anatomic alignment. The fracture at the base of the ulnar styloid is unchanged. Severe diffuse osteopenia is noted. Joint: The radiocarpal, carpal, and carpometacarpal joints are unremarkable in appearance. Soft tissue: Mild soft tissue swelling is present along the dorsal distal forearm. No radiopaque foreign bodies are seen. IMPRESSION: 1. The comminuted fracture of the distal radius has been reduced to near anatomic alignment. The fracture at the base of the ulnar styloid is unchanged. Dictated by Ever Christianson MD @ 09/14/2024 6:12:01 PM Dictated by: Ever Christianson MD @ 09/14/2024 18:12:03 (Electronically Signed) Discharge Plan Discharge Clinical Impression: Colles' fracture of right radius Patient Disposition: Home w/ Parent or Adult Condition: Improved Instructions: Arm Fracture in Adults (DC), Wrist Fracture in Adults (ED) Additional Instructions: Home rest, follow-up with Orthopedics, for scheduled appointment date. Take the Tylenol regularly for the next 2 -3 days I would sling and for couple days, hopefully the fracture hold position we do not have to worry about any further surgery. Return if increasing pain numbness tingling in her fingers or other issues. Appointment given to her for follow-up with orthopedics. 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 See Rx Instructions .Route .MEDSUPPLY Qty: 1 0RF Rx Instructions: As directed (DME) Walker- 4 Wheels Misc See Rx Instructions .Route Qty: 1 0RF Rx Instructions: As directed multivitamin Tablet 1 tab PO QAM Follow Up/Referrals: Riley Villafuerte MD [Staff Physician] - Mehdi Brown MD [Staff Physician] - Provider,Not a Local [Primary Care Provider] - Stand Alone Forms: [employer] Info Instructions Procedures Orthopedic Fracture Reduction Fracture #1: Time Out Performed: Yes Side: right Fracture location: radius + ulna Analgesia: hematoma block Technique: direct manipulation Post Reduction X-rays Demonstrate: acceptable reduction Post-reduction neuro exam: intact Post-reduction vascular exam: intact Splint Applied: Yes Patient Tolerated Procedure: well
[2024-09-14] MEDS: ACETAMINOPHEN 500 MG TABLET 1000 MG PO (17:32)
--- OUTSIDE RECORDS SUMMARY | 2024-09-14 17:35 | XMS_ITS | Clinical Summary ---
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 [phone] Fiona Peralta NP from Last 3 Months [...] on file Legal Sex Female 5:24 AM [employer] ENGINE[employer] Gender Identity Not on file Sexual Orientation Not on file Occupation Industry Job Start Date Job End Date retired Not on file Not on file Not on file Obstetrics History Last Filed Vital Signs Vital Sign Reading Time Taken Comments Blood Pressure 121/61 06/10/2015 2:39 PM [employer] ENGINEER Pulse 78 06/10/2015 2:39 PM [employer] Temperature 36.7 C (98.1 F) 03/09/2015 1:45 PM CDT Respiratory Rate 18 01/08/2011 10:17 AM CDT Oxygen Saturation 99% 06/10/2015 2:39 PM [employer] ENGINEER Inhaled Oxygen Concentration - - Weight 61.9 kg (136 lb 6.4 oz) 06/10/2015 2:39 P M [employer] Height 160 cm (5' 2.99) 03/09/2015 1:45 [...] NO DIFF Routine 06/20/2024 7:1 0 AM [employer] ENGINEER Encounter for other specified surgical aftercare from Last 3 Months Results * (ABNORMAL) CBC W PLT NO DIFF (06/20/2024 7:10 AM [employer]RI[employer] ENGINEER) WHITE BLOOD COUNT 8.6 4.5 - 11.0 thou/cu mm 06/20/2024 8:[address] [facility] RED BLOOD COUNT 3.50(L) 4.00 - 5.20 mil/cu mm 06/20/2024 8:[address] [facility] HEMOGLOBIN 10.2(L) 12.0 - 16.0 g/dL 06/20/2024 8:20 AM [facility] HEMATOCRIT 33.3 33.0 - 51.0 % 06/20/2024 8:20 AM [facility] MCV 95 80 - 100 fL 06/20/2024 8:20 AM [facility] MCH 29.1 26.0 - 34.0 pg 06/20/2024 8:20 AM [facility] MCHC 30.6(L) 32.0 - 36.0 g/dL 06/20/2024 8:20 AM [facility] RDW 14.6 11.5 - 15.5 % 06/20/2024 8:20 AM [facility] PLATELET COUNT 726(H) 140 - 440 thou/cu mm 06/20/2024 8:20 AM [facility] MPV 8.6 6.5 - 11.0 fL 06/20/2024 8:20 AM [facility] Blood BLOOD SPECIMEN / Unknown Venipuncture / Unknown 06/20/2024 7:10 AM [employer] ENGINEER 06/20/2024 8:07 AM [employer] ENGINEER us Fiona Peralta NP HEMATOLOGY Final Resul t 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 PCP - General 07/06/24
--- NOTE | 2024-09-14 17:48 | CRLHL7_ITS ---
For Patients: As a result of the Century Cures Act, medical imaging exams and procedure reports are released immediately into your electronic medical record. You may view this report before your referring provider. If you have questions, please contact your health care provider. INDICATION: Wrist fracture status post reduction TECHNIQUE: Wrist radiograph 2 views right COMPARISON: 09/14/2024 FINDINGS: Bone: The comminuted fracture of the distal radius has been reduced to near anatomic alignment. The fracture at the base of the ulnar styloid is unchanged. Severe diffuse osteopenia is noted. Joint: The radiocarpal, carpal, and carpometacarpal joints are unremarkable in appearance. Soft tissue: Mild soft tissue swelling is present along the dorsal distal forearm. No radiopaque foreign bodies are seen. IMPRESSION: 1. The comminuted fracture of the distal radius has been reduced to near anatomic alignment. The fracture at the base of the ulnar styloid is unchanged. Dictated by Ever Christianson MD @ 09/14/2024 6:12:01 PM Dictated by: Ever Christianson MD @ 09/14/2024 18:12:03 (Electronically Signed)
[2024-09-14] MEDS: LIDOCAINE 1% MDV 30 ML INJECTION (18:03)
== END 2024-09-14 18:29 | disposition home or self-care (01) ==
PROVIDERS: Emergency Provider Family Medicine
DX: S52.531A Colles' fracture of right radius, initial encounter for closed fracture (principal); S52.601A Unspecified fracture of lower end of right ulna, initial encounter for closed fracture; W18.00XA Striking against unspecified object with subsequent fall, initial encounter
CPT/HCPCS: 25605; 73100; 73110; 99284; J2003; A9270